=== PATIENT | male | born 1970 | race Caucasian/White ===

== ENCOUNTER 2017-02-20 14:57 | Inpatient (IN) ==
--- NOTE | 2017-02-20 16:18 | Emergency Department Note ---
Disposition Clinical Impression: Diabetic ulcer of toe Qualifiers: Diabetes mellitus type: other specified (including EUNICE) Laterality: right Non- pressure ulcer stage: unspecified non-pressure ulcer stage Qualified Code(s): E13.621 - Other specified diabetes mellitus with foot ulcer; L97.519 - Non- pressure chronic ulcer of other part of right foot with unspecified severity; L97.519 - Non-pressure chronic ulcer of other part of right foot with unspecified severity; L97.519 - Non-pressure chronic ulcer of other part of right foot with unspecified severity; L97.519 - Non-pressure chronic ulcer of other part of right foot with unspecified severity Osteomyelitis Qualifiers: Osteomyelitis type: unspecified type Osteomyelitis location: foot Laterality: right Qualified Code(s): M86.9 - Osteomyelitis, unspecified Disposition: Admitted As Inpatient Condition: Good Time of Disposition: 17:42 Wound/Laceration HPI - General Chief Complaint: ED Wound/Laceration Stated Complaint: Diabetic ulcer on toe Time Seen by Provider: 02/20/17 15:57 Source: patient, family Limitations: language barrier Nursing Notes Reviewed: Yes Vital Signs Reviewed: Yes - History of Present Illness HPI Narrative: Patient presents to the ED for the nonhealing right great toe diabetic ulcer. Sent over by his abatement worker, Dr. Harden. He has been on a full course of Levaquin, just finished clindamycin and was placed on Levaquin again yesterday when he saw him in office. Sent over for admission and IV antibiotics with concern over osteomyelitis. No fever. Nausea but no vomiting. No chest pain or shortness of breath. No rash. - Related Data Home Medications Medication Instructions Recorded Confirmed Insulin DETEMIR [Levemir] 65 unit SQ HS 01/21/15 02/20/17 Pregabalin [Lyrica] 200 mg PO BID 01/21/15 02/20/17 Atorvastatin Calcium [Lipitor] 20 mg PO DAILY 12/27/16 02/20/17 Liraglutide [Victoza 3-Scott] 1.8 mg SQ QAM 12/27/16 02/20/17 Lisinopril [Zestril] 10 mg PO DAILY 12/27/16 02/20/17 SitaGLIPtin [Januvia] 100 mg PO DAILY 02/20/17 02/20/17 Allergies Allergy/AdvReac Type Severity Reaction Status Date / Time duloxetine [From Cymbalta] Allergy Blister Verified 01/21/15 22:58 gabapentin Allergy Blister Verified 02/20/17 15:05 sulfamethoxazole Allergy Blister Verified 02/20/17 15:05 [From Bactrim] trimethoprim [From Bactrim] Allergy Blister Verified 02/20/17 15:05 All systems ED: reviewed and negative except as stated. Constitutional: Denies: fever Respiratory: Denies: dyspnea Gastrointestinal: Reports: nausea Musculoskeletal: Denies: back pain Integumentary: Reports: as per HPI Past Medical History - Past Medical History Attestation: Yes The following information was validated with the patient. Source: patient Medical history: Reports: diabetes, hyperlipidemia Surgical history: Reports: no surgical history, other Psychiatric history: Reports: no psych history - Social History Smoking Status: Current every day smoker Smokeless Tobacco Status: No Alcohol use: Reports: none Drug use: Reports: none Physical Exam - General Limitations: language barrier General appearance: alert, in no apparent distress - Head Head exam: atraumatic, normocephalic, normal inspection - Eye Eye exam: Present: normal appearance, PERRL, EOMI - ENT ENT exam: normal exam, normal oropharynx, mucous membranes moist - Neck Neck exam: Present: normal inspection, full ROM, trachea midline - Chest Chest inspection: Present: normal inspection, symmetric chest wall rise - Respiratory Respiratory exam: Present: normal lung sounds bilaterally - Cardiovascular Cardiovascular exam: Present: regular rate, normal rhythm, normal heart sounds - Abdominal Exam Abdominal exam: Present: soft, Non-Tender. Absent: tenderness, distention, guarding, rebound, rigidity - Expanded Lower Extremity Exam Foot/toe exam: Present: other (Patient has a right great toe. Nonhealing ulcer , erythematous and swollen, family reports improving. Does seem to extend deep and concerning for potential osteo) - Neurological Exam Neurological exam: Present: alert, oriented X3 - Psychiatric Psychiatric exam: Present: normal affect, normal mood Course Course Narrative: Patient evaluated. Has a nonhealing ulcer on his great toe. Is followed by Dr. Harden with podiatry. States that he was supposed to come to the ER to get a PICC line placed and IV antibiotics. Been on multiple rounds. States is not getting better. We will touch base with Dr. Harden for further disposition. - Reevaluation(s) Reevaluation #1: Patient has osteomyelitis. We will place him on Vanc and Zosyn. Admitted the hospitalist. - Consultations Consultation #1: Spoke with the on-call abatement worker, who contacted Dr. Harden. States that they did want the patient admitted. Request that we get blood cultures. X-ray of the foot. CBC, BMP and start on vancomycin and Zosyn. Patient does not appear acutely ill and we will get this going. He admitted the medicine service. Vital Signs Temperature 97.8 F 02/20/17 15:01 Pulse Rate 119 02/20/17 15:01 Respiratory Rate 16 02/20/17 15:01 Blood Pressure 139/91 02/20/17 15:01 O2 Sat by Pulse Oximetry 99 02/20/17 15:01 Temperature 97.8 F 02/20/17 15:01 Pulse Rate 119 02/20/17 15:01 Respiratory Rate 16 02/20/17 15:01 Blood Pressure 139/91 02/20/17 15:01 O2 Sat by Pulse Oximetry 99 02/20/17 15:01 Oxygen Delivery Oxygen Delivery Room Air Wound/Laceration - Lab Data Result diagrams: 02/20/17 16:39 02/20/17 16:39 Lab Results 02/20/17 02/20/17 Range/Units 16:39 16:39 WBC 10.1 (4.3-11.1) K/mcL RBC 5.01 (4.19-5.50) M/mcL Hgb 14.5 (12.9-16.9) g/dL Hct 42.9 (37.5-50.1) % MCV 85.6 (83.0-100.0) fL MCH 28.9 (28.0-33.3) pg MCHC 33.8 (31.6-35.5) g/dL RDW 12.4 (11.5-14.5) % Plt Count 282 (140-400) K/mcL MPV 11.0 (9.4-12.4) fL Immature Gran % 0.4 (0-4) % Seg Neutrophils % 72.3 % Lymphocytes % 18.1 % Monocytes % 7.3 % Eosinophils % 1.4 % Basophils % 0.5 % Neutrophils # 7.3 (1.6-8.9) K/mcL Lymphocytes # 1.8 (0.6-4.6) K/mcL Monocytes # 0.7 (0.0-1.3) K/mcL Eosinophils # 0.1 (0.0-0.6) K/mcL Basophils # 0.1 (0.0-0.2) K/mcL Immature Plt Fraction 4.9 (1.1-6.1) % Sodium 134 L (136-145) mEq/L Potassium 4.8 H (3.5-4.5) mEq/L Chloride 98 (98-109) mEq/L Carbon Dioxide 27 (19-29) mEq/L BUN 11 (8-26) mg/dL Creatinine 0.73 (0.72-1.25) mg/dL Est GFR ( Amer) > 60 (> 60) Est GFR (Non-Af Amer) > 60 (> 60) BUN/Creatinine Ratio 15 (6-26) Glucose 261 H (70-99) mg/dL Calculated Osmolality 286 (280-300) Calcium 10.0 (8.6-10.8) mg/dL
[2017-02-20 16:51] LABS: Basophils # 0.1 K/mcL (0.0-0.2); Basophils % 0.5 %; Eosinophils # 0.1 K/mcL (0.0-0.6); Eosinophils % 1.4 %; Hematocrit 42.9 % (37.5-50.1); Hemoglobin 14.5 g/dL (12.9-16.9); Immature Granulocytes % 0.4 % (0-4); Immature Platelets 4.9 % (1.1-6.1); Lymphocytes # 1.8 K/mcL (0.6-4.6); Lymphocytes % 18.1 %; Mean Corpuscular HGB Conc 33.8 g/dL (31.6-35.5); Mean Corpuscular Hemoglobin 28.9 pg (28.0-33.3); Mean Corpuscular Volume 85.6 fL (83.0-100.0); Monocytes # 0.7 K/mcL (0.0-1.3); Monocytes % 7.3 %; Neutrophils # 7.3 K/mcL (1.6-8.9); Platelet Count 282 K/mcL (140-400); Red Blood Count 5.01 M/mcL (4.19-5.50); Red Cell Distribution Width 12.4 % (11.5-14.5); Segmented Neutrophils % 72.3 %
[2017-02-20 17:04] LABS: BUN/Creatinine Ratio 15 (6-26); Blood Urea Nitrogen 11 mg/dL (8-26); Carbon Dioxide 27 mEq/L (19-29); Chloride 98 mEq/L (98-109); Glucose 261 mg/dL (70-99); Osmolality,Calculated 286 (280-300); Potassium 4.8 mEq/L (3.5-4.5); Sodium 134 mEq/L (136-145); eGFR For African Americans > 60 (> 60); eGFR For Non-African Americans > 60 (> 60)
[2017-02-20] MEDS ORDERED: Piperacillin/Tazobactam 4.5 GM in D5% in Water (Mini-Bag+) 100 ML IVPB ONE (17:25)
[2017-02-20] MEDS ORDERED: Vancomycin 1,250 MG in D5% in Water 250 ML IVPB ONE (17:25)
--- NOTE | 2017-02-20 17:36 | Emergency Department Note ---
START Narrative - START START: I examined this patient and my medical decision-making was reviewed with the Resident Physician. I agree with the documented findings, disposition and treatment plan as described except to the extent set forth below. 46-year-old male presents with right great toe infection. Patient has osteomyelitis. Patient will be admitted to the hospitalist service and consult with podiatry. 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 We will start him on IV antibiotics.
[2017-02-20] MEDS ORDERED: 0.9 % Sodium Chloride 1,000 ML IVC ONE (19:28)
--- NOTE | 2017-02-20 20:23 | Event Note ---
Date of Encounter: 02/20/17 Time of Encounter: 20:21 Patient seen and examined with nurse practitioner. Diabetic patient with chronic right to nonhealing diabetic ulcer. Culture grew group b strept, Citrobacter and Morganella. According to sensitivities, he completed a 10 day course of clindamycin and levofloxacin. Presents today's with symptoms and signs of systemic infection. 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 Start on vancomycin and Zosyn, hydration, podiatry consultation. He mentioned that his diabetes is uncontrolled lust hemoglobin A-1 C was very high according to him, will repeat
[2017-02-20] MEDS ORDERED: Acetaminophen 325 MG TABLET PO PRN (20:30)
[2017-02-20] MEDS ORDERED: Ondansetron 4 MG/2 ML VIAL IVP PRN (20:30)
[2017-02-20] MEDS ORDERED: Naloxone 0.4 MG/ML INJ IVP PRN (20:30)
[2017-02-20] MEDS ORDERED: *HR* HYDROcodone/Acet 5/325 mg TABLET PO PRN (20:30)
[2017-02-20] MEDS ORDERED: *HR* Morphine 2 MG/ML SYRINGE IVP PRN (20:30)
[2017-02-20] MEDS ORDERED: D5% in Water 1,000 ML IVC PRN (20:32)
[2017-02-20] MEDS ORDERED: Dextrose Gel 15 GM PO PRN ×2 (20:32)
[2017-02-20] MEDS ORDERED: *HR* Dextrose 50 % in Water (Syg) 50 ML SYRINGE IVP PRN (20:32)
[2017-02-20 20:56] LABS: Hemoglobin A1C 9.5 %
[2017-02-20] MEDS ORDERED: Insulin LISPRO 300 UNITS/3 ML VIAL SQ SCH (21:00)
[2017-02-20] MEDS ORDERED: INSULIN DETEMIR 65 UNIT SQ SCH (21:00)
[2017-02-20] MEDS: Pregabalin 50 MG CAPSULE PO SCH (22:49)
--- NOTE | 2017-02-20 23:25 | Internal Med History&Physical ---
Date of Encounter: 02/20/17 Time of Encounter: 21:30 Assessment and Plan (1) Osteomyelitis Current visit: Yes Status: Acute 1 patient has been treated for diabetic foot ulcer for the past 3 months. Previous blood cultures grew group B strep Citrobacter and Morganella-is been treated as outpatient with clindamycin Levaquin with no improvement. X-ray of right foot today did reveal increased erosive changes of the first DIP compatible with progressive prostate mellitus. Blood cultures obtained initiated on vancomycin and Zosyn. 2 Podiatry consulted - per ER physician Qualifiers: Osteomyelitis type: unspecified type Osteomyelitis location: foot Laterality: right Qualified Code(s): M86.9 - Osteomyelitis, unspecified (2) Diabetic ulcer of toe Current visit: Yes Status: Chronic 1 consulted podiatry- awaiting recommendations 2 continue with Vancomycin and zosyn Qualifiers: Diabetes mellitus type: other specified (including EUNICE) Laterality: right Non-pressure ulcer stage: unspecified non-pressure ulcer stage Qualified Code(s): E13.621 - Other specified diabetes mellitus with foot ulcer; L97.519 - Non-pressure chronic ulcer of other part of right foot with unspecified severity ; L97.519 - Non-pressure chronic ulcer of other part of right foot with unspecified severity; L97.519 - Non-pressure chronic ulcer of other part of right foot with unspecified severity; L97.519 - Non-pressure chronic ulcer of other part of right foot with unspecified severity (3) Diabetes mellitus Current visit: Yes Status: Acute 1 Accu-Cheks before meals and at bedtime with sliding scale insulin. We will give half of 35 units Levemir tonight due to patient's nothing by mouth status 2 diabetic diet 3 check A1c in AM Qualifiers: Diabetes mellitus type: type 2 Diabetes mellitus complication status: with skin complications Diabetes mellitus complication detail: with foot ulcer Diabetes mellitus planned giving officer insulin use: with chcf use Qualified Code(s) : E11.621 - Type 2 diabetes mellitus with foot ulcer; L97.509 - Non-pressure chronic ulcer of other part of unspecified foot with unspecified severity; L97.509 - Non-pressure chronic ulcer of other part of unspecified foot with unspecified severity; L97.509 - Non-pressure chronic ulcer of other part of unspecified foot with unspecified severity; L97.509 - Non-pressure chronic ulcer of other part of unspecified foot with unspecified severity; Z79.4 - halfway (current) use of insulin; Z79.4 - corporate training manager (current) use of insulin; Z79.4 - halfway (current) use of insulin; Z79.4 - corporate training manager (current) use of insulin (4) DVT prophylaxis Current visit: Yes Status: Acute lovenox (5) Hypertension Current visit: No Status: Chronic continue with lisinopril Qualifiers: Hypertension type: essential hypertension Qualified Code(s): I10 - Essential (primary) hypertension (6) Tobacco abuse Current visit: No Status: Acute encourage to stop smoking - nicotine patch Internal Medicine - H&P: HPI Chief complaint: infection to L great toe Admitted From: Emergency Dept Plans for Post Hospital Care: Home History of present illness: Mr. Menon is a 46 year old male smoker with history of diabetes neuropathy and hypertension. 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 Patient was advised to go to the ER for evaluation and admission. X-ray of right foot did reveal increased erosive changes of the first DIP joint most compatible with progressive osteomyelitis. Blood cultures were obtained Dr. Harden was notified and consu According to the patient for the past 3 months he has had a chronic nonhealing diabetic ulcer to his right foot. He has been followed by podiatry-Dr. Harden. Culture grew group B strep Citrobacter and Morganella. He has been receiving outpatient antibiotics, clindamycin and Levaquin. He presented to his lted The patient has been admitted for further workup and evaluation. Presently the patient denies any pain or discomfort. He is hemodynamically stable at this time. Past Med Surg Social Fam HX - Past Medical History Medical history: diabetes, hyperlipidemia Psychiatric history: no psych history - Past Surgical History Surgical History: other - Social History Smoking Status: Current every day smoker Smokeless Tobacco Status: No Alcohol use: none Drug use: none - Family History Father Living Status: Still Living Hx Family Neuromuscular Disorders: Yes (cva) Mother Living Status: Still Living Hx Family Endocrine Disorder: Yes (DM) Internal Medicine - H&P: Meds Insulin DETEMIR [Levemir] 65 unit SQ HS 01/21/15 [History] Pregabalin [Lyrica] 200 mg PO BID 01/21/15 [History] Atorvastatin Calcium [Lipitor] 20 mg PO DAILY 12/27/16 [History] Liraglutide [Victoza 3-Scott] 1.8 mg SQ QAM 12/27/16 [History] Lisinopril [Zestril] 10 mg PO DAILY 12/27/16 [History] SitaGLIPtin [Januvia] 100 mg PO DAILY 02/20/17 [History] 3 Allergy/AdvReac Type Severity Reaction Status Date / Time duloxetine [From Cymbalta] Allergy Blister Verified 01/21/15 22:58 gabapentin Allergy Blister Verified 02/20/17 15:05 sulfamethoxazole Allergy Blister Verified 02/20/17 15:05 [From Bactrim] trimethoprim [From Bactrim] Allergy Blister Verified 02/20/17 15:05 All Systems PM: A 10-system review of systems was performed and is negative for pertinent findings except as documented above in the HPI. - Constitutional Constitutional: no chills, no fever(s), no night sweats - EENT Eyes: no change in vision, no discharge, no pain, no photophobia Nose, mouth and throat: no dysphagia, no nasal discharge, no neck pain, no sore throat - Cardiovascular Cardiovascular ROS IM: no chest pain, no diaphoresis, no dyspnea, no lightheadedness, no palpitations, no syncope - Respiratory Respiratory: no cough, no dyspnea, no wheezing, no excessive phlegm production - Gastrointestinal Gastrointestinal: no abdominal pain, no diarrhea, no hematemesis, no hematochezia, no melena, no nausea, no vomiting - Musculoskeletal Musculoskeletal ROS IM: no numbness, no tingling - Integumentary Integumentary IM: non-healing lesions - Neurological Neurological ROS: no confusion, no convulsions, no focal weakness, no numbness, no tingling, no tremor(s) - Hematologic/Lymphatic Hematologic/Lymphatic: no easy bruising - Constitutional Vitals: Temp Pulse Resp BP Pulse Ox 98.9 F 117 18 111/70 97 02/20/17 19:25 02/20/17 19:25 02/20/17 19:25 02/20/17 19:25 02/20/17 19:25 General appearance: Present: A&O X 3, answers questions appropriately - Head Head exam: Present: atraumatic, normocephalic - Eye Eye exam: Present: PERRL, conjuntiva pink, sclera anicteric Pupils: Present: PERRL - Neck Neck exam general surgery: Present: supple, trachea midline. Absent: lymphadenopathy - Respiratory Respiratory exam: Present: CTAB. Absent: accessory muscle use, rales, rhonchi, wheezes - Cardiovascular Cardiovascular exam: Present: RRR, +S1, +S2. Absent: diastolic murmur, gallop, rubs, systolic murmur - GI/Abdominal GI/Abdominal exam: Present: normal bowel sounds, soft, no peritoneal signs. Absent: distended, tenderness - Extremities Exam Extremities exam: Present: warm, radial pulses palpable and symmetrical. Absent : calf tenderness, cyanotic, pedal edema - Expanded Lower Extremities Exam 1 - Nonhealing ulcer to great toe Internal Med - H&P Results - Labs CBC & Chem 7: 02/20/17 16:39 02/20/17 16:39 - Diagnostic Studies Other Images Additional comments: Foot X-Ray 02/20/17 16:27 IMPRESSION: Increased erosive changes/osteopenia of the 1st DIP joint, most compatible with progressive osteomyelitis. D/ / 02/20/2017 17:17:56 Bharat Augustine MD / simone Interpreting Provider: Bharat Augustine MD
[2017-02-21] MEDS ORDERED: Dextrose Gel 15 GM PO PRN ×2 (00:44)
[2017-02-21] MEDS ORDERED: *HR* Dextrose 50 % in Water (Syg) 50 ML SYRINGE IVP PRN (00:44)
[2017-02-21] MEDS ORDERED: D5% in Water 1,000 ML IVC PRN (00:44)
[2017-02-21] MEDS: Piperacillin/Tazobactam 3.375 GM in D5% in Water 50 ML IVPB SCH ×3 (00:52→16:17)
[2017-02-21] MEDS: Insulin LISPRO 300 UNITS/3 ML VIAL SQ SCH ×4 (00:52→17:14)
[2017-02-21] MEDS: Insulin DETEMIR 100 UNIT/ML X5UNITS SQ SCH ×2 (00:53→21:56)
[2017-02-21] MEDS: *HR* Enoxaparin 40 MG/0.4 ML SYRINGE SQ SCH (05:46)
[2017-02-21] MEDS ORDERED: Insulin LISPRO 300 UNITS/3 ML VIAL SQ SCH ×2 (06:00→07:30)
[2017-02-21 06:50] LABS: Hematocrit 39.5 % (37.5-50.1); Hemoglobin 13.2 g/dL (12.9-16.9); Mean Corpuscular HGB Conc 33.4 g/dL (31.6-35.5); Mean Corpuscular Hemoglobin 28.8 pg (28.0-33.3); Mean Corpuscular Volume 86.2 fL (83.0-100.0); Platelet Count 267 K/mcL (140-400); Red Blood Count 4.58 M/mcL (4.19-5.50); Red Cell Distribution Width 12.2 % (11.5-14.5)
[2017-02-21 07:03] LABS: BUN/Creatinine Ratio 17 (6-26); Blood Urea Nitrogen 11 mg/dL (8-26); Calcium 9.3 mg/dL (8.6-10.8); Carbon Dioxide 28 mEq/L (19-29); Chloride 103 mEq/L (98-109); Glucose 93 mg/dL (70-99); Magnesium 1.6 mg/dL (1.6-2.6); Osmolality,Calculated 287 (280-300); Potassium 4.5 mEq/L (3.5-4.5); Sodium 139 mEq/L (136-145); eGFR For African Americans > 60 (> 60); eGFR For Non-African Americans > 60 (> 60)
[2017-02-21 07:51] LABS: Eosinophils # 0.2 K/mcL (0.0-0.6); Monocytes # 0.5 K/mcL (0.0-1.3); Neutrophils # 8.6 K/mcL (1.6-8.9); Reactive Lymphocytes Present (Not Present)
[2017-02-21 07:54] LABS: Platelet Estimate Normal (Normal)
[2017-02-21] MEDS ORDERED: Vancomycin 1,250 MG in D5% in Water 250 ML IVPB SCH ×2 (08:00→23:45)
[2017-02-21] MEDS: Nicotine 14 MG PATCH.TD24 TD SCH (09:01)
[2017-02-21] MEDS: Pregabalin 50 MG CAPSULE PO SCH ×2 (09:01→21:55)
[2017-02-21] MEDS: Vancomycin 1,250 MG in D5% in Water 250 ML IVPB SCH (12:22)
--- NOTE | 2017-02-21 13:13 | Podiatry Consult Note ---
Date of Encounter: 02/21/17 Time of Encounter: 12:00 Assessment and Plan (1) Diabetic ulcer of toe Current visit: Yes Status: Resolved Assessment: Full thickness diabetic ulcer to medial aspect of right great toe with probe to bone. Last cultures positive for Group B strep, citrobacter and morganella Plan: Noted probe to bone on exam xray suggestive of osteomyelitis of 1st DIP joint as noted below Will obtain MRI w/wo contrast to further evaluate extent of osteomyelitis Sed rate and CRP ordered Wound cultures to be obtained at bedside per nursing staff- floor did not have culture tubes available Blood cultures were obtained, started on vanc and zosyn per internal medicine- monitor renal function Continue current antibiotic therapy- consult to ID- will likely need 6 weeks IV antibiotic therapy SW on board and managing home antibiotic therapy After MRI, will determine need for surgical intervention Please apply adaptic, 4x4 and coban to wound after cultures obtained. Foot X-Ray 02/20/17 16:27 IMPRESSION: Increased erosive changes/osteopenia of the 1st DIP joint, most compatible with progressive osteomyelitis. D/ / 02/20/2017 17:17:56 Bharat Augustine MD / simone Interpreting Provider: Bharat Augustine MD Qualifiers: Diabetes mellitus type: other specified (including EUNICE) Laterality: right Non-pressure ulcer stage: unspecified non-pressure ulcer stage Qualified Code(s): E13.621 - Other specified diabetes mellitus with foot ulcer; L97.519 - Non-pressure chronic ulcer of other part of right foot with unspecified severity ; L97.519 - Non-pressure chronic ulcer of other part of right foot with unspecified severity; L97.519 - Non-pressure chronic ulcer of other part of right foot with unspecified severity; L97.519 - Non-pressure chronic ulcer of other part of right foot with unspecified severity (2) Tobacco abuse Current visit: No Status: Acute Medical following and appreciated Please educate on smoking cessation (3) Osteomyelitis Current visit: Yes Status: Acute see above Qualifiers: Osteomyelitis type: subacute Osteomyelitis location: foot Laterality: right Qualified Code(s): M86.271 - Subacute osteomyelitis, right ankle and foot (4) Diabetes mellitus Current visit: Yes Status: Acute Medical on board and managing- appreciated Please obtain tight glucose control- hyperglycemia noted Educated extensively at bedside about need to obtain tight glucose control to promote healing and prevent further complication Patient states he thinks last a1c was in 9s however states it was 14. States he was recently admitted with DKA. Qualifiers: Diabetes mellitus type: type 2 Diabetes mellitus complication status: with skin complications Diabetes mellitus complication detail: with foot ulcer Diabetes mellitus care home insulin use: with long term care phlebotomist use Qualified Code(s) : E11.621 - Type 2 diabetes mellitus with foot ulcer; L97.509 - Non-pressure chronic ulcer of other part of unspecified foot with unspecified severity; L97.509 - Non-pressure chronic ulcer of other part of unspecified foot with unspecified severity; L97.509 - Non-pressure chronic ulcer of other part of unspecified foot with unspecified severity; L97.509 - Non-pressure chronic ulcer of other part of unspecified foot with unspecified severity; Z79.4 - superintendent terminal (current) use of insulin; Z79.4 - custodial (current) use of insulin; Z79.4 - custodial (current) use of insulin; Z79.4 - superintendent terminal (current) use of insulin History of Present Illness HPI: Mr. Menon is a 46 year old male with a past medical history of uncontrolled diabetes with recent admission for DKA, hypertension and tobacco use. Patient has been followed per in clinic for an ulceration of the medial aspect of the right great toe. Per patient, wound started about 3 months ago. States he got out of the shower and noticed a piece of skin hanging from his toe. States that the ulcer appeared within the days following and has never healed. Cultures were obtained on 02/08, positive for morganella, group B strep and, citrobacter and patient was treated with clindamycin and levaquin. Patient returned to office 2 days ago and ulceration was noted to be worsening, he was instructed to go to hospital for IV antibiotic therapy. Patient denies any fevers, chills, n/v or flu like symptoms. at bedside, states she has been dressing wound daily with 4x4 and coban. Patient states glucose has not been well controlled. He is a current everyday smoker. Past Med Surg Social Fam HX - Past Medical History Medical history: diabetes, hyperlipidemia Psychiatric history: no psych history - Past Surgical History Surgical History: other - Social History Smoking Status: Current every day smoker Smokeless Tobacco Status: No Alcohol use: none Drug use: none - Family History Father Living Status: Still Living Hx Family Neuromuscular Disorders: Yes (cva) Mother Living Status: Still Living Hx Family Endocrine Disorder: Yes (DM) Medications and Allergies Insulin DETEMIR [Levemir] 65 unit SQ HS 01/21/15 [History] Pregabalin [Lyrica] 200 mg PO BID 01/21/15 [History] Atorvastatin Calcium [Lipitor] 20 mg PO DAILY 12/27/16 [History] Liraglutide [Victoza 3-Scott] 1.8 mg SQ QAM 12/27/16 [History] Lisinopril [Zestril] 10 mg PO DAILY 12/27/16 [History] SitaGLIPtin [Januvia] 100 mg PO DAILY 02/20/17 [History] Crutch 1 each MC DAILY #1 each 02/25/17 [Rx] Insulin LISPRO [HumaLOG] 5 units SQ TIDWM #2 vial 02/25/17 [Rx] Nicotine Patch [Nicoderm] 14 mg TD DAILY #30 patch.td24 02/25/17 [Rx] Vancomycin [Vancocin] 1,500 mg IV Q12H 42 Days vial 02/25/17 [Rx] 3 Allergy/AdvReac Type Severity Reaction Status Date / Time duloxetine [From Cymbalta] Allergy Blister Verified 01/21/15 22:58 gabapentin Allergy Blister Verified 02/20/17 15:05 sulfamethoxazole Allergy Blister Verified 02/20/17 15:05 [From Bactrim] trimethoprim [From Bactrim] Allergy Blister Verified 02/20/17 15:05 All Systems Reviewed: A 10-system review of systems was performed and is negative for pertinent findings except as documented above in the HPI. Physical Exam - Constitutional Vitals: Temp Pulse Resp BP Pulse Ox 98.8 F 114 16 114/68 99 02/21/17 10:26 02/21/17 10:26 02/21/17 10:26 02/21/17 10:26 02/21/17 10:26 Exam: Awake, alert and oriented Minimal sensation to light or moderate touch - profound loss of protective sensation Movement intact- no limited ROM- muscle strength 5/5 and equal bilaterally Pulses palpable DP/PT Cap refill <3 seconds BLE warm toes to tibia No calf pain with manual compression ULCER: There is a large diabetic ulcer to medial aspect of right great toe. There is associated edema, erythema and warmth to toe. Ulcer measures [id number] depth with probe to bone. There is no noted drainage at this time however reports it was draining a green color. Wound bleeds easily with manipulation. There is minimal healthy granulation tissue. 90% fibrous wound bed noted. Wound surrounded by thick, hyperkeratotic skin. Mild odor. No ascending cellulitis. No fluctuance noted. Results - Labs Result Diagrams: 02/25/17 05:19 02/25/17 05:19 Labs: Abnormal lab results WBC 11.3 K/mcL (4.3-11.1) H 02/21/17 06:09 Reactive Lymphocytes Present (Not Present) A 02/21/17 06:09 Creatinine 0.66 mg/dL (0.72-1.25) L 02/21/17 06:09 POC Glucose 97 (58-89) H 02/21/17 06:25 Hemoglobin A1c 9.5 % (-5.6) H 02/20/17 16:39 H & H 02/21/17 Range/Units 06:09 Hgb 13.2 (12.9-16.9) g/dL Hct 39.5 (37.5-50.1) % All other labs normal. Consult Discharge Plan - Plan Instructions: Vancomycin (Injection), Osteomyelitis (DC) Referrals: Pamela Bruce CNP [Advanced Practice Nurse] - 03/11/17 9:00 am Chidi Woody DO [Primary Care Provider] - Prescriptions: Crutch 1 each MC DAILY #1 each Insulin LISPRO [HumaLOG] 5 units SQ TIDWM #2 vial Nicotine Patch [Nicoderm] 14 mg TD DAILY #30 patch.td24 Vancomycin [Vancocin] 1,500 mg IV Q12H 42 Days vial
[2017-02-21 13:21] LABS: C-Reactive Protein 8 mg/L (Less than 5)
[2017-02-21] MEDS ORDERED: Insulin DETEMIR 100 UNIT/ML X5UNITS SQ SCH (21:00)
[2017-02-22] MEDS: Insulin LISPRO 300 UNITS/3 ML VIAL SQ SCH ×5 (00:15→21:21)
[2017-02-22] MEDS: Piperacillin/Tazobactam 3.375 GM in D5% in Water 50 ML IVPB SCH ×4 (00:16→23:19)
[2017-02-22] MEDS: Vancomycin 1,250 MG in D5% in Water 250 ML IVPB SCH (00:16)
[2017-02-22 05:35] LABS: Basophils # 0.1 K/mcL (0.0-0.2); Basophils % 0.6 %; Eosinophils # 0.3 K/mcL (0.0-0.6); Eosinophils % 3.3 %; Hematocrit 33.9 % (37.5-50.1); Hemoglobin 11.3 g/dL (12.9-16.9); Immature Granulocytes % 0.4 % (0-4); Lymphocytes # 2.2 K/mcL (0.6-4.6); Lymphocytes % 23.5 %; Mean Corpuscular HGB Conc 33.3 g/dL (31.6-35.5); Mean Corpuscular Hemoglobin 28.7 pg (28.0-33.3); Monocytes % 11.1 %; Neutrophils # 5.8 K/mcL (1.6-8.9); Platelet Count 221 K/mcL (140-400); Red Blood Count 3.94 M/mcL (4.19-5.50); Red Cell Distribution Width 12.1 % (11.5-14.5); Segmented Neutrophils % 61.1 %
[2017-02-22 05:46] LABS: BUN/Creatinine Ratio 15 (6-26); Blood Urea Nitrogen 11 mg/dL (8-26); Calcium 8.9 mg/dL (8.6-10.8); Carbon Dioxide 28 mEq/L (19-29); Chloride 101 mEq/L (98-109); Glucose 151 mg/dL (70-99); Osmolality,Calculated 282 (280-300); Sodium 135 mEq/L (136-145); eGFR For African Americans > 60 (> 60); eGFR For Non-African Americans > 60 (> 60)
[2017-02-22] MEDS: *HR* Enoxaparin 40 MG/0.4 ML SYRINGE SQ SCH (05:58)
--- NOTE | 2017-02-22 09:10 | Internal Med Progress Note ---
Date of Encounter: 02/21/17 Time of Encounter: 15:56 - Assessment and plan (1) Osteomyelitis Current Visit: Yes Status: Acute Assessment and plan: Patient would like to leave, he does agree to MRI as was recommended by Podiatry. Had d/w patient severity of osteomyelitis. He is more willing to stay at this point. Qualifiers: Osteomyelitis type: unspecified type Osteomyelitis location: foot Laterality: right Qualified Code(s): M86.9 - Osteomyelitis, unspecified (2) Diabetic ulcer of toe Current Visit: Yes Status: Chronic Qualifiers: Diabetes mellitus type: other specified (including EUNICE) Laterality: right Non-pressure ulcer stage: unspecified non-pressure ulcer stage Qualified Code(s): E13.621 - Other specified diabetes mellitus with foot ulcer; L97.519 - Non-pressure chronic ulcer of other part of right foot with unspecified severity ; L97.519 - Non-pressure chronic ulcer of other part of right foot with unspecified severity; L97.519 - Non-pressure chronic ulcer of other part of right foot with unspecified severity; L97.519 - Non-pressure chronic ulcer of other part of right foot with unspecified severity (3) Noncompliance Current Visit: No Status: Acute (4) Tobacco abuse Current Visit: No Status: Acute (5) Hypertension Current Visit: No Status: Chronic Qualifiers: Hypertension type: essential hypertension Qualified Code(s): I10 - Essential (primary) hypertension - Subjective Interval history: present in room. No acute events. Patient debating to leaving tomorrow because he has no one to take care of his dog. Pain controlled. Denies fevers /chills, n/v. - Constitutional Vitals: Temp Pulse Resp BP Pulse Ox 98.2 F 87 16 107/76 98 02/22/17 06:40 02/22/17 06:40 02/22/17 06:40 02/22/17 06:40 02/22/17 06:40 General appearance: Present: A&O X 3, answers questions appropriately Exam: Gen Nad, AAOx3 CVS: RRR Lungs: CTAB Right foot wrapped with clean dressing. No foul odor, dressing c/d/i. No edema Internal Medicine: Result - Labs CBC & Chem 7: 02/22/17 05:03 02/22/17 05:03 Labs: Short CBC 02/22/17 Range/Units 05:03 WBC 9.4 (4.3-11.1) K/mcL Hgb 11.3 L D (12.9-16.9) g/dL Hct 33.9 L (37.5-50.1) % Plt Count 221 (140-400) K/mcL Neutrophils # 5.8 (1.6-8.9) K/mcL BMP 02/21/17 02/22/17 06:09 05:03 Sodium 139 135 L Potassium 4.5 4.0 Chloride 103 101 Carbon Dioxide 28 28 BUN 11 11 Creatinine 0.66 L 0.72 Glucose 93 151 H Calcium 9.3 8.9 - Impressions Impressions Foot MRI 02/21/17 13:03 IMPRESSION: 1. Osteomyelitis throughout the 1st proximal and distal phalanges. 2. Soft tissue ulceration medial to the head of the 1st proximal phalanx with underlying sinus tract contacting the phalanx. Adjacent subcutaneous edema extending proximally along the dorsum of foot compatible with cellulitis. 3. Small volume of fluid in the 1st intermetatarsal space without significant peripheral enhancement and separate from the other soft tissue processes likely representing intermetatarsal bursitis. 4. Diffuse intramuscular edema compatible with diabetic myopathy versus denervation versus myositis. D/ / Evangelista Copeland MD / Evangelista Copeland MD Interpreting Provider: Evangelista Copeland MD Consult Discharge Plan - Plan Referrals: Chidi Woody DO [Primary Care Provider] -
[2017-02-22] MEDS ORDERED: Insulin DETEMIR 100 UNIT/ML X5UNITS SQ ONE (09:15)
[2017-02-22] MEDS: Pregabalin 50 MG CAPSULE PO SCH ×2 (09:45→21:09)
[2017-02-22] MEDS: Nicotine 14 MG PATCH.TD24 TD SCH (09:45)
--- NOTE | 2017-02-22 11:50 | Infectious Disease Consult ---
Date of Encounter: 02/22/17 Time of Encounter: 11:50 Assessment and Plan (1) Sepsis Status: Acute Assessment and plan: The patient had two SIRS criteria. Likely secondary to right foot OM. Improved. Tachycardia has resolved. WBC has normalized. Blood cultures drawn 02/20/17 are NGTD x 2 sets. Qualifiers: Sepsis type: sepsis due to unspecified organism Qualified Code(s): A41.9 - Sepsis, unspecified organism (2) Osteomyelitis Status: Acute Assessment and plan: Location: Right great toe. Causative organism unclear. Previous wound culture from 02/08/17 grew M. morgannii, Citrobacter, and GBS. Likely secondary to diabetic foot ulcer. Failed outpatient oral antibiotics. MRI of the right foot showed OM of the distal and proximal phalanges as well as cellulitis. ESR 85, CRP 8. Podiatry consulted. Per patient, they are planning to amputate the toe. Repeat wound culture obtained yesterday per podiatry --> pending. Await intra-op findings. Continue Vancomycin IV. Pharmacy to dose. Goal trough ~15. Continue Zosyn 3.375 grams IV Q8H. Duration of treatment depends on the clinical picture. Monitor renal function and for drug toxicity and dose-adjust antibiotics. Wound care and activity restrictions per the podiatry team. java web services developer consulted to assist with discharge planning. Qualifiers: Osteomyelitis type: unspecified type Osteomyelitis location: foot Laterality: right Qualified Code(s): M86.9 - Osteomyelitis, unspecified (3) Diabetic ulcer of toe Status: Chronic Assessment and plan: Location: Dorsal aspect right great toe. Etiology unclear. Continue wound care per podiatry's recommendations. Qualifiers: Diabetes mellitus type: other specified (including EUNICE) Laterality: right Non-pressure ulcer stage: unspecified non-pressure ulcer stage Qualified Code(s): E13.621 - Other specified diabetes mellitus with foot ulcer; L97.519 - Non-pressure chronic ulcer of other part of right foot with unspecified severity ; L97.519 - Non-pressure chronic ulcer of other part of right foot with unspecified severity; L97.519 - Non-pressure chronic ulcer of other part of right foot with unspecified severity; L97.519 - Non-pressure chronic ulcer of other part of right foot with unspecified severity (4) Hyperglycemia Status: Acute Assessment and plan: Secondary to uncontrolled DM. Management per the primary team. (5) Tobacco abuse Status: Acute (6) Diabetes mellitus Status: Acute Assessment and plan: Uncontrolled. Hgb A1C 9.5%. Recommend aggressive glucose monitoring and control to promote wound healing and prevent re-infection. Management per the primary team. 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 Qualified Code(s) : E11.621 - Type 2 diabetes mellitus with foot ulcer; L97.509 - Non-pressure chronic ulcer of other part of unspecified foot with unspecified severity; L97.509 - Non-pressure chronic ulcer of other part of unspecified foot with unspecified severity; L97.509 - Non-pressure chronic ulcer of other part of unspecified foot with unspecified severity; L97.509 - Non-pressure chronic ulcer of other part of unspecified foot with unspecified severity; Z79.4 - snf (current) use of insulin; 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 Menon is a 46 year old male has medical history of diabetes and hyperlipidemia. The patient was managed the hospital February 20 for osteomyelitis of the right great toe. We are consulted February 22 for antibiotic recommendations regarding osteomyelitis of the right great toe. Briefly, the patient is a 46-year-old male with a past medical history as stated above. The patient presented to the emergency department on the day of admission under the direction of Dr. Harden for a nonhealing right great toe ulcer. The patient noticed the ulcer back in November and has been following with Dr. Harden. He states he's been treated with a couple rounds of antibiotics and has had continued worsening of the ulcer with associated redness and swelling. Culture obtained October 27 grew out Morganella Morgagni, group B strep, and Citrobacter. Upon arrival to the ER, the patient was tachycardic and afebrile. He had a normal white blood cell count, but yesterday his white blood cell count was elevated. Other laboratory studies were unremarkable. He had a foot x- ray that showed erosive changes of the distal interphalangeal joint #1 consistent with osteomyelitis. He was started on empiric IV antibiotics and admitted to the hospital for further evaluation. Since admission, the patient has remained afebrile and his white blood cell count has normalized. A right foot MRI showed osteomyelitis of the first distal and proximal phalanges as well as cellulitis. Podiatry was consulted and did a bedside debridement noticed that the ulcer probed to bone. A new wound culture was obtained and the Gram stain shows few gram-negative rods and moderate gram- positive cocci. ESR is elevated at 85 with a CRP of 8. Currently, the patient is on IV vancomycin and IV Zosyn. We've been asked to evaluate and make further recommendations. During my exam today, the patient states that he was having some chills and nausea prior to admission, but denies any fevers or rigors. He denies any headache or neck pain. He denies any congestion, earache, or sore throat. He denies any chest pain, shortness of breath, or cough. He denies any vomiting or diarrhea. He denies any abdominal pain and states his appetite was okay. He denies pain at the site of the infection. He does report that was red and swollen with redness extending up to the mid foot. He denies any purulent drainage. The patient lives at home with his . Does have a dog, but denies any recent bites or scratches. He denies recent travel. He does smoke a pack of cigarettes per day, but denies any alcohol or illicit drug use. The patient does not work outside the home. CC: Poncho Ahumada MD Past Med Surg Social Fam HX - Past Medical History Attestation: Yes The following information was validated with the patient. Source: patient, old records reviewed, nursing notes reviewed Medical history: diabetes, hyperlipidemia Psychiatric history: no psych history - Past Surgical History Surgical History: other (left ankle ORIF) - Social History Smoking Status: Current every day smoker Packs per day: 1 Smokeless Tobacco Status: No Alcohol use: none Drug use: none Occupational status: disabled Current living situation: Home - Independent Activity Level: Independent ambulation Recent Out of Country Travel Within the Last 8 Weeks: No Exposure or Possible Exposure to Illness During Travel: No - Family History Father Living Status: Still Living Hx Family Neuromuscular Disorders: Yes (cva) Mother Living Status: Still Living Hx Family Endocrine Disorder: Yes (DM) Infectious Disease-CN:Meds Insulin DETEMIR [Levemir] 65 unit SQ HS 01/21/15 [History] Pregabalin [Lyrica] 200 mg PO BID 01/21/15 [History] Atorvastatin Calcium [Lipitor] 20 mg PO DAILY 12/27/16 [History] Liraglutide [Victoza 3-Scott] 1.8 mg SQ QAM 12/27/16 [History] Lisinopril [Zestril] 10 mg PO DAILY 12/27/16 [History] SitaGLIPtin [Januvia] 100 mg PO DAILY 02/20/17 [History] 3 Allergy/AdvReac Type Severity Reaction Status Date / Time duloxetine [From Cymbalta] Allergy Blister Verified 01/21/15 22:58 gabapentin Allergy Blister Verified 02/20/17 15:05 sulfamethoxazole Allergy Blister Verified 02/20/17 15:05 [From Bactrim] trimethoprim [From Bactrim] Allergy Blister Verified 02/20/17 15:05 All systems: reviewed and no additional remarkable complaints except as stated Exam - Constitutional Vitals: Temp Pulse Resp BP Pulse Ox 98.2 F 87 16 107/76 98 02/22/17 06:40 02/22/17 06:40 02/22/17 06:40 02/22/17 06:40 02/22/17 06:40 General appearance: average body habitus, cooperative, no acute distress - Head Head exam: Present: atraumatic, normal inspection, normocephalic - Eye Eye exam: Present: EOMI, normal appearance, PERRL Pupils: Present: normal accommodation - ENT ENT exam: Present: mucous membranes moist - Neck Neck exam: Present: normal inspection - Respiratory Respiratory exam: Present: CTAB. Absent: rales, respiratory distress, rhonchi, wheezes - Cardiovascular Cardiovascular exam: Present: RRR, +S1, +S2 - GI/Abdominal GI/Abdominal exam: Present: normal bowel sounds, soft. Absent: distended, tenderness - Extremities Exam Extremities exam: Absent: joint swelling, pedal edema, tenderness Additional comments: Right foot dressing C/D/I. - Neurological Exam Neurological exam: Present: alert, oriented X3, no focal deficits - Psychiatric Psychiatric exam: Present: normal affect, normal mood - Skin Skin exam: Present: dry, intact, normal color, warm Infectious Disease CN: Results - Labs CBC & Chem 7: 02/22/17 05:03 02/22/17 05:03 Cultures: Cultures 02/21/17 12:42 Gram Stain - Preliminary Right Great Toe Consult Discharge Plan - Plan Referrals: Chidi Woody DO [Primary Care Provider] -
[2017-02-22] MEDS ORDERED: D5% in 0.9% NACL 1,000 ML IVC SCH ×2 (12:30→19:12)
[2017-02-22] MEDS ORDERED: Vancomycin 1,500 MG in D5% in Water 250 ML IVPB SCH (13:00)
--- NOTE | 2017-02-22 16:07 | Podiatry Consult Note ---
Date of Encounter: 02/22/17 Time of Encounter: 09:15 Assessment and Plan (1) Osteomyelitis Current visit: Yes Status: Acute I had a thorough review with the patient regarding his condition, my findings, and his treatment options. We discussed his x-rays and his MRI and the ulceration which has been present for 3 months. Discussed the infection which has been found to be present in the bone and the ulceration which probes to bone. Discussed amputation of the right hallux versus conservative treatment with IV antibiotics patient decided that he would like to proceed with the amputation of the right hallux after taking time to think it over. Nature of the procedure amputation of the right hallux, risks versus benefits potential complications and consequences of the procedure explained to the patient lengthy understood that this could be a stage procedure and he could need further surgery in the future. No guarantees made that he would not require further amputation and he understood that he could lose his leg. All questions were answered and informed consent was signed. Patient NPO, cone cleaner the OR. History of Present Illness HPI: Mr. Menon is a 46 year old diabetic male who has had a right great toe ulceration for 3 months. He was being treated by Dr. Harden as an outpatient for the wound and on oral antibiotics. Patient was referred to admission from the hospital previously but refused to go because he had to feed his dog. He then subsequently showed up in the ER and was admitted. He was found to have an ulceration that probed to bone. He denies any fever, chills, nausea, and vomiting. A1c was previously as high as 14% and most recently reported at 9%. A month ago he was admitted with DKA. Past Med Surg Social Fam HX - Past Medical History Medical history: diabetes, hyperlipidemia Psychiatric history: no psych history - Past Surgical History Surgical History: other (left ankle ORIF) - Social History Smoking Status: Current every day smoker Packs per day: 1 Smokeless Tobacco Status: No Alcohol use: none Drug use: none - Family History Father Living Status: Still Living Hx Family Neuromuscular Disorders: Yes (cva) Mother Living Status: Still Living Hx Family Endocrine Disorder: Yes (DM) Medications and Allergies Insulin DETEMIR [Levemir] 65 unit SQ HS 01/21/15 [History] Pregabalin [Lyrica] 200 mg PO BID 01/21/15 [History] Atorvastatin Calcium [Lipitor] 20 mg PO DAILY 12/27/16 [History] Liraglutide [Victoza 3-Scott] 1.8 mg SQ QAM 12/27/16 [History] Lisinopril [Zestril] 10 mg PO DAILY 12/27/16 [History] SitaGLIPtin [Januvia] 100 mg PO DAILY 02/20/17 [History] 3 Allergy/AdvReac Type Severity Reaction Status Date / Time duloxetine [From Cymbalta] Allergy Blister Verified 01/21/15 22:58 gabapentin Allergy Blister Verified 02/20/17 15:05 sulfamethoxazole Allergy Blister Verified 02/20/17 15:05 [From Bactrim] trimethoprim [From Bactrim] Allergy Blister Verified 02/20/17 15:05 All Systems Reviewed: A 10-system review of systems was performed and is negative for pertinent findings except as documented above in the HPI. - Constitutional Constitutional: as per HPI - Cardiovascular Cardiovascular: no chest pain, no dyspnea - Respiratory Respiratory: no cough, no dyspnea - Musculoskeletal Musculoskeletal: as per HPI, joint swelling Physical Exam - Constitutional Vitals: Temp Pulse Resp BP Pulse Ox 98 F 84 16 108/73 99 02/22/17 09:41 02/22/17 09:41 02/22/17 09:41 02/22/17 09:41 02/22/17 09:41 General appearance: average body habitus, cooperative, no acute distress Exam: well developed and nourished male in no acute distress Vasc: CFT < 3 sec x 5 digits right foot. DP and PT pulse is palpable 1/4. feet ibanez warm to touch. right hallux edema. Derm: medial right hallux at the level of the IPJ there is also with some purulent drainage and the ulceration probes to bone. there is erythema of the right hallux. does not extend to the MTP joint. Musc: no pain with palpation of the ulceration site or with squeeze or motion of the MPT or IP joints. Neuro: sensation absent to light touch. Results - Labs Result Diagrams: 02/22/17 05:03 02/22/17 05:03 Labs: Abnormal lab results RBC 3.94 M/mcL (4.19-5.50) L 02/22/17 05:03 Hgb 11.3 g/dL (12.9-16.9) L D 02/22/17 05:03 Hct 33.9 % (37.5-50.1) L 02/22/17 05:03 Reactive Lymphocytes Present (Not Present) A 02/21/17 06:09 ESR 85 mm/hr (0-10) H 02/21/17 06:09 Sodium 135 mEq/L (136-145) L 02/22/17 05:03 Glucose 151 mg/dL (70-99) H 02/22/17 05:03 POC Glucose 328 (58-89) H 02/22/17 00:10 Hemoglobin A1c 9.5 % (-5.6) H 02/20/17 16:39 C-Reactive Protein 8 mg/L (Less than 5) H 02/21/17 06:09 H & H 02/22/17 Range/Units 05:03 Hgb 11.3 L D (12.9-16.9) g/dL Hct 33.9 L (37.5-50.1) % All other labs normal. - Diagnostic results Ankle/Foot x-ray: report reviewed, image reviewed (MRI-osteomyelitis right distal and proximal phalanx of hallux xray-cortical destruction medial aspect of proximal and distal phalanx) Ankle/Foot MRI: report reviewed, image reviewed Consult Discharge Plan - Plan Referrals: Chidi Woody DO [Primary Care Provider] -
--- NOTE | 2017-02-22 16:22 | Anesthesia Evaluation PreOp ---
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: Other (diabetic peripheral neuropathy) Other Medical History: Diabetes Type II (insulin dependent) Alcohol Use: none Drug use: none Medications and Allergies Insulin DETEMIR [Levemir] 65 unit SQ HS 01/21/15 [History] Pregabalin [Lyrica] 200 mg PO BID 01/21/15 [History] Atorvastatin Calcium [Lipitor] 20 mg PO DAILY 12/27/16 [History] Liraglutide [Victoza 3-Scott] 1.8 mg SQ QAM 12/27/16 [History] Lisinopril [Zestril] 10 mg PO DAILY 12/27/16 [History] SitaGLIPtin [Januvia] 100 mg PO DAILY 02/20/17 [History] 3 Allergy/AdvReac Type Severity Reaction Status Date / Time duloxetine [From Cymbalta] Allergy Blister Verified 01/21/15 22:58 gabapentin Allergy Blister Verified 02/20/17 15:05 sulfamethoxazole Allergy Blister Verified 02/20/17 15:05 [From Bactrim] trimethoprim [From Bactrim] Allergy Blister Verified 02/20/17 15:05 - Meds/Allergy Pre-op Review Medications Reviewed: Yes Allergies Reviewed: Yes Beta Blockers on Current Med List: No Anesthesia Results - Labs 02/22/17 05:03 02/22/17 05:03 - Imaging EKG: report reviewed, image reviewed (SINUS TACHYCARDIA BASELINE ARTIFACT) Anesthesia Exam Last Vital Signs Temp 98 F 02/22/17 09:41 Pulse 84 02/22/17 09:41 Resp 16 02/22/17 09:41 BP 108/73 02/22/17 09:41 Pulse Ox 99 02/22/17 09:41 Weight: 79 kg - HEENT Pupil (Motor): Pupils equal, EOMI Mallampati: I Teeth: Normal Oral Opening: Greater than 3 - MESSAGE BROKER DEVELOPER LOC: Oriented MESSAGE BROKER DEVELOPER Sensory: Deficit: RLE, LLE - Cardiac Rhythm: Regular Murmur: None - Pulmonary Breath Sounds: bilateral Clear Respiratory Effort: Symmetrical Anesthesia Assess/Plan ASA Score: 3 Modified Nae Scale for Level of Consciousness: Cooperative, oriented, and tranquil Anesthetic Plan: MAC Monitoring Plan: Standard Monitors Recovery Plan: PACU
[2017-02-22] MEDS ORDERED: *HR* Propofol 200 MG/20 ML VIAL IVP ONE (16:29)
[2017-02-22] MEDS ORDERED: Lidocaine -MPF 2% 2 ML VIAL ONE (16:29)
--- NOTE | 2017-02-22 17:45 | Operative Note ---
Date of procedure: 02/22/17 Pre-op diagnosis: necrosis of bone with ulceration right foot Post-op diagnosis: same Procedure: incision and drainage to bone cortex for osteomyelitis right foot amputation of right great toe Implants: none Complications: none Anesthesia: MAC Local Anesthetics: Other (2% lidocaine plain) Surgeon: Tutu Clayton Estimated blood loss (cc): 10 Specimen: pathology-right great toe micro-right hallux soft tissue ulcer Condition: stable Disposition: PACU Procedure in Detail: Indications: 46-year-old diabetic male with a right great toe ulceration which is been present for approximately 3 months. The ulceration measures 3 cm x 1 cm x 1.5cm and probes to bone and has purulent drainage present. Nature of the procedures above discussed with patient at length preoperatively. Risks first benefits potential complications and consequences of the procedure discussed with patient at length and he understood that he could still have an infection and lose more of his foot or leg. All of his questions were answered and informed consent was signed. The patient was brought from the preoperative holding area and the operating room placed on the operating room table in the supine position. 12cc of 2% lidocaine plain was injected into the patient's right foot. The right foot was scrubbed prepped and draped in the usual sterile fashion and the following procedures began. Incision and drainage to bone cortex. Amputation of right great toe. A #15 blade was used to make an incision over the distal aspect of the first metatarsal extending across the metatarsophalangeal joint and over the interphalangeal joint of the right hallux. Sharp dissection was carried out down to the level of the periosteum and the soft tissue freed. With the soft tissues retracted the bone cortex was visualized which clinically at the proximal and distal phalanx of the right hallux was felt to be soft and devitalized in appearance, this was clinically consistent with osteomyelitis necessitating the need for amputation of the right hallux. It should be noted that the soft tissue and the hallux was also carreon and devitalized. Some of this tissue near the ulceration site was sent to microbiology for aerobic and anaerobic and gram stain. A #15 was used to disarticulate the hallux at the metatarsophalangeal joint. Some plantar soft tissue of the hallux which did not appear infected or contain devitalized tissue was salvaged and later used to flap and aid in closure of the amputation site The surgical amputation site was irrigated and inspected. No purulence or devitalized tissue was felt to be present at the level of the amputation. Healthy bleeding tissue was present. The first metatarsal bone was normal in color and not soft. The flexor and extensor tendons were identified and resected proximally. The surgical site was deemed adequate for closure. Adequate hemostasis was present. The plantar flap was then reconfigured and incorporated into closure of the skin at the amputation site by flapping the plantar aspect dorsally to provide coverage. 2- 0 Prolene was used to reapproximate the skin there was no tension on the skin. Postoperative bandaging included adaptic, 4 x 4 gauze, abdominal pad, Kerlix and an Camilo wrap. Patient tolerated the anesthesia and the procedure well and was escorted to recovery room with vital signs stable and vascular status intact to the right foot and remaining digits of the right foot noted by instant capillary refill time. Adequate hemostasis was present. He will be returned to the floor where he will continue IV antibiotics.
--- NOTE | 2017-02-22 17:47 | Anesthesia Evaluation Post Op ---
Date of Encounter: 02/22/17 Time of Encounter: 17:46 - Vital Signs Vital Signs: Last Vital Signs Temp 98 F 02/22/17 09:41 Pulse 88 02/22/17 16:30 Resp 16 02/22/17 16:30 BP 134/98 02/22/17 16:30 Pulse Ox 97 02/22/17 16:30 - Lungs Lungs: Clear Ascult./Percussion - Airway Airway: Non-obstructed - Cardiovascular Regular Rate - Mental Status Mental Status: Alert & Oriented, Answers Appropriately - Pain Pain Scale: 2 - Nausea Vomiting Nausea Vomiting: Not Present - Hydration Hydration: NPO - Discharge PostOp Status: Transfer Patient to floor
[2017-02-22] MEDS ORDERED: Dextrose Gel 15 GM PO PRN ×4 (19:12)
[2017-02-22] MEDS ORDERED: D5% in Water 1,000 ML IVC PRN (19:12)
[2017-02-22] MEDS ORDERED: Acetaminophen 325 MG TABLET PO PRN (19:12)
[2017-02-22] MEDS ORDERED: Naloxone 0.4 MG/ML INJ IVP PRN (19:12)
[2017-02-22] MEDS ORDERED: Ondansetron 4 MG/2 ML VIAL IVP PRN (19:12)
[2017-02-22] MEDS ORDERED: *HR* HYDROcodone/Acet 5/325 mg TABLET PO PRN (19:12)
[2017-02-22] MEDS ORDERED: *HR* Dextrose 50 % in Water (Syg) 50 ML SYRINGE IVP PRN (19:12)
[2017-02-22] MEDS ORDERED: *HR* Morphine 2 MG/ML SYRINGE IVP PRN (19:12)
[2017-02-22] MEDS ORDERED: Insulin DETEMIR 100 UNIT/ML X5UNITS SQ SCH (21:00)
[2017-02-23] MEDS ORDERED: Insulin LISPRO 300 UNITS/3 ML VIAL SQ SCH
[2017-02-23] MEDS: Vancomycin 1,500 MG in D5% in Water 250 ML IVPB SCH ×2 (01:03→12:28)
[2017-02-23 03:27] LABS: Basophils # 0.1 K/mcL (0.0-0.2); Basophils % 0.7 %; Eosinophils # 0.2 K/mcL (0.0-0.6); Eosinophils % 2.3 %; Hematocrit 33.8 % (37.5-50.1); Hemoglobin 11.3 g/dL (12.9-16.9); Immature Granulocytes % 0.3 % (0-4); Lymphocytes # 2.1 K/mcL (0.6-4.6); Lymphocytes % 20.4 %; Mean Corpuscular HGB Conc 33.4 g/dL (31.6-35.5); Mean Corpuscular Hemoglobin 28.6 pg (28.0-33.3); Mean Corpuscular Volume 85.6 fL (83.0-100.0); Mean Platelet Volume 11.3 fL (9.4-12.4); Monocytes % 9.5 %; Platelet Count 223 K/mcL (140-400); Red Blood Count 3.95 M/mcL (4.19-5.50); Red Cell Distribution Width 12.1 % (11.5-14.5); Segmented Neutrophils % 66.8 %
[2017-02-23 03:41] LABS: BUN/Creatinine Ratio 16 (6-26); Blood Urea Nitrogen 12 mg/dL (8-26); Calcium 8.7 mg/dL (8.6-10.8); Carbon Dioxide 25 mEq/L (19-29); Chloride 101 mEq/L (98-109); Glucose 306 mg/dL (70-99); Osmolality,Calculated 289 (280-300); Potassium 4.2 mEq/L (3.5-4.5); Sodium 134 mEq/L (136-145); eGFR For African Americans > 60 (> 60); eGFR For Non-African Americans > 60 (> 60)
[2017-02-23] MEDS: *HR* Enoxaparin 40 MG/0.4 ML SYRINGE SQ SCH (05:12)
[2017-02-23] MEDS: Pregabalin 50 MG CAPSULE PO SCH ×2 (08:00→20:32)
[2017-02-23] MEDS: Nicotine 14 MG PATCH.TD24 TD SCH (08:01)
[2017-02-23] MEDS: Piperacillin/Tazobactam 3.375 GM in D5% in Water 50 ML IVPB SCH ×2 (08:01→17:24)
[2017-02-23] MEDS: Insulin LISPRO 300 UNITS/3 ML VIAL SQ SCH ×4 (08:10→20:37)
--- NOTE | 2017-02-23 09:11 | Internal Med Progress Note ---
Date of Encounter: 02/23/17 Time of Encounter: 09:11 - Assessment and plan (1) Diabetes mellitus Current Visit: Yes Status: Acute Assessment and plan: Goal for glucose <180. Will need to increase basal insulin tonight. Uncontrolled at home, may have run in 200s-300s at baseline. Can resume 65 units basal insulin for tonight with humalog with meals. Qualifiers: Diabetes mellitus type: type 2 Diabetes mellitus complication status: with skin complications Diabetes mellitus complication detail: with foot ulcer Diabetes mellitus group home insulin use: with buttermaker use Qualified Code(s) : E11.621 - Type 2 diabetes mellitus with foot ulcer; L97.509 - Non-pressure chronic ulcer of other part of unspecified foot with unspecified severity; L97.509 - Non-pressure chronic ulcer of other part of unspecified foot with unspecified severity; L97.509 - Non-pressure chronic ulcer of other part of unspecified foot with unspecified severity; L97.509 - Non-pressure chronic ulcer of other part of unspecified foot with unspecified severity; Z79.4 - buttermaker (current) use of insulin; Z79.4 - longterm (current) use of insulin; Z79.4 - longterm (current) use of insulin; Z79.4 - buttermaker (current) use of insulin (2) Osteomyelitis Current Visit: Yes Status: Acute Assessment and plan: Status post amputation right great foot on 02/22, doing well. Qualifiers: Osteomyelitis type: subacute Osteomyelitis location: foot Laterality: right Qualified Code(s): M86.271 - Subacute osteomyelitis, right ankle and foot (3) Diabetic ulcer of toe Current Visit: Yes Status: Chronic Qualifiers: Diabetes mellitus type: other specified (including EUNICE) Laterality: right Non-pressure ulcer stage: unspecified non-pressure ulcer stage Qualified Code(s): E13.621 - Other specified diabetes mellitus with foot ulcer; L97.519 - Non-pressure chronic ulcer of other part of right foot with unspecified severity ; L97.519 - Non-pressure chronic ulcer of other part of right foot with unspecified severity; L97.519 - Non-pressure chronic ulcer of other part of right foot with unspecified severity; L97.519 - Non-pressure chronic ulcer of other part of right foot with unspecified severity (4) Noncompliance Current Visit: No Status: Acute (5) Tobacco abuse Current Visit: No Status: Acute (6) Hypertension Current Visit: No Status: Chronic Qualifiers: Hypertension type: essential hypertension Qualified Code(s): I10 - Essential (primary) hypertension - Subjective Interval history: present in room. No acute events. Doing well post op - Constitutional Vitals: Temp Pulse Resp BP Pulse Ox 98.3 F 62 16 136/60 97 02/23/17 08:12 02/23/17 08:12 02/23/17 08:12 02/23/17 08:12 02/23/17 08:12 General appearance: Present: A&O X 3, answers questions appropriately Exam: Gen Nad, AAOx3 CVS: RRR Lungs: CTAB Foot with clean dressing post amputation Internal Medicine: Result - Labs CBC & Chem 7: 02/24/17 05:20 02/24/17 05:20 Labs: Short CBC 02/23/17 Range/Units 02:53 WBC 10.4 (4.3-11.1) K/mcL Hgb 11.3 L (12.9-16.9) g/dL Hct 33.8 L (37.5-50.1) % Plt Count 223 (140-400) K/mcL Neutrophils # 7.0 (1.6-8.9) K/mcL BMP 02/23/17 02:53 Sodium 134 L Potassium 4.2 Chloride 101 Carbon Dioxide 25 BUN 12 Creatinine 0.76 Glucose 306 H Calcium 8.7 Consult Discharge Plan - Plan Referrals: Chidi Woody DO [Primary Care Provider] -
[2017-02-23] MEDS ORDERED: Insulin DETEMIR 100 UNIT/ML X5UNITS SQ ONE (09:15)
--- NOTE | 2017-02-23 11:14 | Podiatry Progress Note ---
Date of Encounter: 02/23/17 Time of Encounter: 10:00 - Assessment and Plan (1) Osteomyelitis Current Visit: Yes Status: Acute reviewed with patient surgical procedure and findings. will change bandage tomorrow. c/w heel weight bearing right LE in surgical shoe. f/u micro and path. antibiotics per infectious disease. Qualifiers: Osteomyelitis type: subacute Osteomyelitis location: foot Laterality: right Qualified Code(s): M86.271 - Subacute osteomyelitis, right ankle and foot Subjective Interval history: day #1 s/p right hallux amputation for osteomyelitis. he says his pain is controlled. He denies f/c/n/v/sob/cp. Says he is only putting weight on his heel in the surgical shoe. Objective - Vital Signs Vital Signs: Vital Signs Temp Pulse Resp BP Pulse Ox 02/23/17 08:12 98.3 F 62 16 136/60 97 02/22/17 23:56 98.0 F 93 17 133/87 97 02/22/17 19:00 98.1 F 83 16 134/83 99 02/22/17 18:00 97.9 F 90 16 117/75 99 02/22/17 16:30 88 16 134/98 97 Intake and Output 02/22/17 02/23/17 02/23/17 23:59 07:59 15:59 Intake Total 340 / 340 300 / 300 480 / 480 Output Total 660 / 660 800 / 800 Balance -320 / -320 300 / 300 -320 / -320 Intake: IV Fluids 300 / 300 Zosyn 3.375 GM In Dextrose 5% ( 50 / 50 ADD-[place]) 50 ML @ 12.5 mls/ hr IVPB Q8HR [facility] Rx#:[id number] Vancocin 1,500 MG In Dextrose 5 250 / 250 % 250 ML @ 166.67 mls/hr IVPB Q12H [facility] Rx#:[id number] Oral 340 / 340 480 / 480 Output: Urine 650 / 650 800 / 800 Estimated Blood Loss Other: Meal Breakfast Percent of Meal Consumed 100% # Voids 1 1 Blood Glucose* 232 177 - Exam Exam: well developed and nourished male in no acute distress Vasc: CFT < 3 sec x 4 remaining right foot digits and are warm to touch. Derm: bandage clean, dry, and intact. no strikethrough. Musc: no calf pain with squeeze b/l. Neuro: sensation absent to light touch. Tissue culture-pending Pathology right hallux-pending - Lab Result Diagrams: 02/23/17 02:53 02/23/17 02:53 Labs: Abnormal lab results RBC 3.95 M/mcL (4.19-5.50) L 02/23/17 02:53 Hgb 11.3 g/dL (12.9-16.9) L 02/23/17 02:53 Hct 33.8 % (37.5-50.1) L 02/23/17 02:53 Reactive Lymphocytes Present (Not Present) A 02/21/17 06:09 ESR 85 mm/hr (0-10) H 02/21/17 06:09 Sodium 134 mEq/L (136-145) L 02/23/17 02:53 Glucose 306 mg/dL (70-99) H 02/23/17 02:53 POC Glucose 232 (58-89) H 02/22/17 21:17 Hemoglobin A1c 9.5 % (-5.6) H 02/20/17 16:39 C-Reactive Protein 8 mg/L (Less than 5) H 02/21/17 06:09 Microbiology, Last 48 Hours 02/22/17 17:41 Surgical Biopsy Culture - Preliminary Right Foot 02/21/17 12:42 Gram Stain - Preliminary Right Great Toe Consult Discharge Plan - Plan Referrals: Chidi Woody DO [Primary Care Provider] -
[2017-02-23] MEDS ORDERED: Insulin DETEMIR 100 UNIT/ML X5UNITS SQ SCH (21:00)
[2017-02-24] MEDS: Vancomycin 1,500 MG in D5% in Water 250 ML IVPB SCH ×2 (01:11→13:37)
[2017-02-24] MEDS: Piperacillin/Tazobactam 3.375 GM in D5% in Water 50 ML IVPB SCH ×3 (01:12→18:17)
[2017-02-24 05:45] LABS: Basophils % 0.5 %; Eosinophils # 0.3 K/mcL (0.0-0.6); Eosinophils % 4.2 %; Hematocrit 37.4 % (37.5-50.1); Hemoglobin 12.2 g/dL (12.9-16.9); Immature Granulocytes % 0.4 % (0-4); Lymphocytes # 1.7 K/mcL (0.6-4.6); Mean Corpuscular HGB Conc 32.6 g/dL (31.6-35.5); Mean Corpuscular Hemoglobin 28.4 pg (28.0-33.3); Mean Corpuscular Volume 87.2 fL (83.0-100.0); Mean Platelet Volume 10.9 fL (9.4-12.4); Monocytes # 0.8 K/mcL (0.0-1.3); Monocytes % 10.4 %; Neutrophils # 4.9 K/mcL (1.6-8.9); Platelet Count 226 K/mcL (140-400); Red Blood Count 4.29 M/mcL (4.19-5.50); Red Cell Distribution Width 12.3 % (11.5-14.5); Segmented Neutrophils % 62.5 %
[2017-02-24 06:03] LABS: BUN/Creatinine Ratio 17 (6-26); Blood Urea Nitrogen 12 mg/dL (8-26); Carbon Dioxide 28 mEq/L (19-29); Chloride 102 mEq/L (98-109); Glucose 152 mg/dL (70-99); Osmolality,Calculated 287 (280-300); Potassium 4.1 mEq/L (3.5-4.5); Sodium 137 mEq/L (136-145); eGFR For African Americans > 60 (> 60); eGFR For Non-African Americans > 60 (> 60)
[2017-02-24] MEDS: *HR* Enoxaparin 40 MG/0.4 ML SYRINGE SQ SCH (06:44)
[2017-02-24] MEDS: Nicotine 14 MG PATCH.TD24 TD SCH (08:18)
[2017-02-24] MEDS: Insulin LISPRO 300 UNITS/3 ML VIAL SQ SCH ×6 (08:21→20:50)
[2017-02-24] MEDS: Pregabalin 50 MG CAPSULE PO SCH ×2 (08:23→20:49)
--- NOTE | 2017-02-24 09:56 | Podiatry Progress Note ---
Date of Encounter: 02/24/17 Time of Encounter: 09:30 - Assessment and Plan (1) Osteomyelitis Current Visit: Yes Status: Acute reviewed with patient course of recovery. bandage changed, no wound dehiscence. leave bandage clean, dry, and intact. no bandage change at home. c/w heel weight bearing right LE in surgical shoe. f/u micro and path. discharge antibiotics per infectious disease. Qualifiers: Osteomyelitis type: subacute Osteomyelitis location: foot Laterality: right Qualified Code(s): M86.271 - Subacute osteomyelitis, right ankle and foot Subjective Interval history: day #2 s/p right hallux amputation for osteomyelitis. he says his pain is controlled. He denies f/c/n/v/sob/cp. Does report a couple episodes of diarrhea since yesterday. He says it may be from the ensure protein drink he started yesterday. Says he is only putting weight on his heel in the surgical shoe. Objective - Vital Signs Vital Signs: Vital Signs Temp Pulse Resp BP Pulse Ox 02/24/17 06:25 97.9 F 86 18 120/74 98 02/24/17 00:26 98.4 F 83 18 111/77 99 02/23/17 20:37 98.2 F 90 19 114/75 99 02/23/17 16:23 98.1 F 89 14 122/79 98 02/23/17 11:56 98.8 F 82 16 132/68 97 Intake and Output 02/23/17 02/24/17 02/24/17 23:59 07:59 15:59 Intake Total 530 / 530 650 / 650 240 / 240 Balance 530 / 530 650 / 650 240 / 240 Intake: IV Fluids 50 / 50 50 / 50 Zosyn 3.375 GM In Dextrose 5% ( 50 / 50 50 / 50 ADD-[place]) 50 ML @ 12.5 mls/ hr IVPB Q8HR [facility] Rx#:[id number] Oral 480 / 480 600 / 600 240 / 240 Other: Meal Lunch Breakfast Percent of Meal Consumed 100% 100% # Voids 1 Weight 78.1 kg Blood Glucose* 318 136 Patient Weight 02/24/17 23:59 Weight 78.1 kg - Exam Exam: well developed and nourished male in no acute distress Vasc: DP pulse palpable. CFT < 3 sec x 4 remaining digits of the right foot. mild edema. Derm: sutures intact. no drainage, no purulence or fluctuance. no ascending erythema. no wound dehiscence. Musc: no pain with palpation. good ankle and STJ ROM. Neuro: sensation absent to light touch. - Radiology X-Rays: image reviewed (consistent with amputation of the right hallux) - Lab Result Diagrams: 02/24/17 05:20 02/24/17 05:20 Labs: Abnormal lab results Hgb 12.2 g/dL (12.9-16.9) L 02/24/17 05:20 Hct 37.4 % (37.5-50.1) L 02/24/17 05:20 Reactive Lymphocytes Present (Not Present) A 02/21/17 06:09 ESR 85 mm/hr (0-10) H 02/21/17 06:09 Creatinine 0.71 mg/dL (0.72-1.25) L 02/24/17 05:20 Glucose 152 mg/dL (70-99) H 02/24/17 05:20 POC Glucose 318 (58-89) H 02/23/17 20:22 Hemoglobin A1c 9.5 % (-5.6) H 02/20/17 16:39 C-Reactive Protein 8 mg/L (Less than 5) H 02/21/17 06:09 Microbiology, Last 48 Hours 02/22/17 17:41 Surgical Biopsy Culture - Preliminary Right Foot 02/21/17 12:42 Wound Culture - Preliminary Right Great Toe Enterococcus species 02/21/17 12:42 Gram Stain - Final Right Great Toe Consult Discharge Plan - Plan Referrals: Chidi Woody DO [Primary Care Provider] -
[2017-02-24] MEDS: Insulin DETEMIR 100 UNIT/ML X5UNITS SQ SCH (20:50)
[2017-02-25] MEDS: Vancomycin 1,500 MG in D5% in Water 250 ML IVPB SCH ×2 (00:03→12:05)
--- NOTE | 2017-02-25 00:11 | Internal Med Progress Note ---
Date of Encounter: 02/22/17 Time of Encounter: 09:10 - Assessment and plan (1) Diabetes mellitus Current Visit: Yes Status: Acute Assessment and plan: Will tighten glycemic control when patient tolerates diabetic diet. Goal for glucose <180 Qualifiers: Diabetes mellitus type: type 2 Diabetes mellitus complication status: with skin complications Diabetes mellitus complication detail: with foot ulcer Diabetes mellitus custodial insulin use: with custodial use Qualified Code(s) : E11.621 - Type 2 diabetes mellitus with foot ulcer; L97.509 - Non-pressure chronic ulcer of other part of unspecified foot with unspecified severity; L97.509 - Non-pressure chronic ulcer of other part of unspecified foot with unspecified severity; L97.509 - Non-pressure chronic ulcer of other part of unspecified foot with unspecified severity; L97.509 - Non-pressure chronic ulcer of other part of unspecified foot with unspecified severity; Z79.4 - FPC (current) use of insulin; Z79.4 - FPC (current) use of insulin; Z79.4 - [facility] (current) use of insulin; Z79.4 - middle or intermediate school principal (current) use of insulin (2) Osteomyelitis Current Visit: Yes Status: Acute Assessment and plan: Patient willing to do surgery. RN calling Podiatry/OR for scheduling. Qualifiers: Osteomyelitis type: subacute Osteomyelitis location: foot Laterality: right Qualified Code(s): M86.271 - Subacute osteomyelitis, right ankle and foot (3) Diabetic ulcer of toe Current Visit: Yes Status: Chronic Qualifiers: Diabetes mellitus type: other specified (including EUNICE) Laterality: right Non-pressure ulcer stage: unspecified non-pressure ulcer stage Qualified Code(s): E13.621 - Other specified diabetes mellitus with foot ulcer; L97.519 - Non-pressure chronic ulcer of other part of right foot with unspecified severity ; L97.519 - Non-pressure chronic ulcer of other part of right foot with unspecified severity; L97.519 - Non-pressure chronic ulcer of other part of right foot with unspecified severity; L97.519 - Non-pressure chronic ulcer of other part of right foot with unspecified severity (4) Noncompliance Current Visit: No Status: Acute (5) Tobacco abuse Current Visit: No Status: Acute (6) Hypertension Current Visit: No Status: Chronic Qualifiers: Hypertension type: essential hypertension Qualified Code(s): I10 - Essential (primary) hypertension - Subjective Interval history: Patient decided he is willing to do operation today. - Constitutional Vitals: Temp Pulse Resp BP Pulse Ox 98.0 F 85 18 133/73 99 02/24/17 23:57 02/24/17 23:57 02/24/17 23:57 02/24/17 23:57 02/24/17 23:57 General appearance: Present: A&O X 3, answers questions appropriately Exam: Gen Nad, AAOx3 CVS: RRR Lungs: CTAB Right foot wrapped with clean dressing. No foul odor, dressing c/d/i. No edema Internal Medicine: Result - Labs CBC & Chem 7: 02/24/17 05:20 02/24/17 05:20 Labs: Short CBC 02/24/17 Range/Units 05:20 WBC 7.8 (4.3-11.1) K/mcL Hgb 12.2 L (12.9-16.9) g/dL Hct 37.4 L (37.5-50.1) % Plt Count 226 (140-400) K/mcL Neutrophils # 4.9 (1.6-8.9) K/mcL BMP 02/24/17 05:20 Sodium 137 Potassium 4.1 Chloride 102 Carbon Dioxide 28 BUN 12 Creatinine 0.71 L Glucose 152 H Calcium 9.0 Consult Discharge Plan - Plan Referrals: Chidi Woody DO [Primary Care Provider] -
--- NOTE | 2017-02-25 00:25 | Internal Med Progress Note ---
Date of Encounter: 02/24/17 Time of Encounter: 14:23 - Assessment and plan (1) Diabetes mellitus Current Visit: Yes Status: Acute Assessment and plan: Goal for glucose <180. Will need to increase basal insulin tonight. Uncontrolled at home, may have run in 200s-300s at baseline and so 65 units levemir may not be enough. He did have a glucose of 105 at some point today, would like to avoid hypoglycemic episodes as well. Will increase basal insulin cautiously Qualifiers: Diabetes mellitus type: type 2 Diabetes mellitus complication status: with skin complications Diabetes mellitus complication detail: with foot ulcer Diabetes mellitus care home insulin use: with manager terminal use Qualified Code(s) : E11.621 - Type 2 diabetes mellitus with foot ulcer; L97.509 - Non-pressure chronic ulcer of other part of unspecified foot with unspecified severity; L97.509 - Non-pressure chronic ulcer of other part of unspecified foot with unspecified severity; L97.509 - Non-pressure chronic ulcer of other part of unspecified foot with unspecified severity; L97.509 - Non-pressure chronic ulcer of other part of unspecified foot with unspecified severity; Z79.4 - termite technician (current) use of insulin; Z79.4 - termite technician (current) use of insulin; Z79.4 - termite technician (current) use of insulin; Z79.4 - termite technician (current) use of insulin (2) Osteomyelitis Current Visit: Yes Status: Acute Qualifiers: Osteomyelitis type: subacute Osteomyelitis location: foot Laterality: right Qualified Code(s): M86.271 - Subacute osteomyelitis, right ankle and foot (3) Diabetic ulcer of toe Current Visit: Yes Status: Chronic Qualifiers: Diabetes mellitus type: other specified (including EUNICE) Laterality: right Non-pressure ulcer stage: unspecified non-pressure ulcer stage Qualified Code(s): E13.621 - Other specified diabetes mellitus with foot ulcer; L97.519 - Non-pressure chronic ulcer of other part of right foot with unspecified severity ; L97.519 - Non-pressure chronic ulcer of other part of right foot with unspecified severity; L97.519 - Non-pressure chronic ulcer of other part of right foot with unspecified severity; L97.519 - Non-pressure chronic ulcer of other part of right foot with unspecified severity (4) Noncompliance Current Visit: No Status: Acute (5) Tobacco abuse Current Visit: No Status: Acute (6) Hypertension Current Visit: No Status: Chronic Qualifiers: Hypertension type: essential hypertension Qualified Code(s): I10 - Essential (primary) hypertension - Subjective Interval history: present in room. No complaints - Constitutional Vitals: Temp Pulse Resp BP Pulse Ox 98.0 F 85 18 133/73 99 02/24/17 23:57 02/24/17 23:57 02/24/17 23:57 02/24/17 23:57 02/24/17 23:57 General appearance: Present: A&O X 3, answers questions appropriately Exam: Gen: NAD CVS: RRR Lungs: CTAB Abd: NT/ND Ext: right foot wrapped, trace edema at ankles. Internal Medicine: Result - Labs CBC & Chem 7: 02/24/17 05:20 02/24/17 05:20 Labs: Short CBC 02/24/17 Range/Units 05:20 WBC 7.8 (4.3-11.1) K/mcL Hgb 12.2 L (12.9-16.9) g/dL Hct 37.4 L (37.5-50.1) % Plt Count 226 (140-400) K/mcL Neutrophils # 4.9 (1.6-8.9) K/mcL BMP 02/24/17 05:20 Sodium 137 Potassium 4.1 Chloride 102 Carbon Dioxide 28 BUN 12 Creatinine 0.71 L Glucose 152 H Calcium 9.0 Consult Discharge Plan - Plan Referrals: Chidi Woody DO [Primary Care Provider] -
[2017-02-25] MEDS: Piperacillin/Tazobactam 3.375 GM in D5% in Water 50 ML IVPB SCH ×2 (01:02→08:11)
[2017-02-25] MEDS: *HR* Enoxaparin 40 MG/0.4 ML SYRINGE SQ SCH (05:27)
[2017-02-25 05:46] LABS: Basophils # 0.1 K/mcL (0.0-0.2); Basophils % 0.8 %; Eosinophils # 0.4 K/mcL (0.0-0.6); Eosinophils % 4.8 %; Hematocrit 35.4 % (37.5-50.1); Hemoglobin 11.6 g/dL (12.9-16.9); Immature Granulocytes % 0.3 % (0-4); Lymphocytes # 2.1 K/mcL (0.6-4.6); Lymphocytes % 26.8 %; Mean Corpuscular HGB Conc 32.8 g/dL (31.6-35.5); Mean Corpuscular Hemoglobin 28.2 pg (28.0-33.3); Mean Corpuscular Volume 86.1 fL (83.0-100.0); Mean Platelet Volume 11.4 fL (9.4-12.4); Monocytes # 0.8 K/mcL (0.0-1.3); Monocytes % 9.8 %; Neutrophils # 4.5 K/mcL (1.6-8.9); Platelet Count 215 K/mcL (140-400); Red Blood Count 4.11 M/mcL (4.19-5.50); Red Cell Distribution Width 12.2 % (11.5-14.5); Segmented Neutrophils % 57.5 %
[2017-02-25 06:11] LABS: BUN/Creatinine Ratio 22 (6-26); Blood Urea Nitrogen 17 mg/dL (8-26); Calcium 9.2 mg/dL (8.6-10.8); Carbon Dioxide 28 mEq/L (19-29); Chloride 102 mEq/L (98-109); Glucose 270 mg/dL (70-99); Osmolality,Calculated 293 (280-300); Potassium 4.5 mEq/L (3.5-4.5); Sodium 136 mEq/L (136-145); eGFR For African Americans > 60 (> 60); eGFR For Non-African Americans > 60 (> 60)
[2017-02-25] MEDS: Pregabalin 50 MG CAPSULE PO SCH ×2 (08:10→20:37)
[2017-02-25] MEDS: Insulin LISPRO 300 UNITS/3 ML VIAL SQ SCH ×7 (08:11→20:39)
[2017-02-25] MEDS: Nicotine 14 MG PATCH.TD24 TD SCH (08:12)
--- NOTE | 2017-02-25 11:00 | Infectious Disease Progress No ---
Date of Encounter: 02/25/17 Time of Encounter: 10:58 - Assessment and Plan (1) Sepsis Current Visit: Yes Status: Acute Qualifiers: Sepsis type: sepsis due to unspecified organism Qualified Code(s): A41.9 - Sepsis, unspecified organism (2) Osteomyelitis Current Visit: Yes Status: Acute Qualifiers: Osteomyelitis type: subacute Osteomyelitis location: foot Laterality: right Qualified Code(s): M86.271 - Subacute osteomyelitis, right ankle and foot (3) Diabetic ulcer of toe Current Visit: Yes Status: Chronic Qualifiers: Diabetes mellitus type: other specified (including EUNICE) Laterality: right Non-pressure ulcer stage: unspecified non-pressure ulcer stage Qualified Code(s): E13.621 - Other specified diabetes mellitus with foot ulcer; L97.519 - Non-pressure chronic ulcer of other part of right foot with unspecified severity ; L97.519 - Non-pressure chronic ulcer of other part of right foot with unspecified severity; L97.519 - Non-pressure chronic ulcer of other part of right foot with unspecified severity; L97.519 - Non-pressure chronic ulcer of other part of right foot with unspecified severity (4) Hyperglycemia Current Visit: No Status: Acute (5) Tobacco abuse Current Visit: No Status: Acute (6) Diabetes mellitus Current Visit: Yes Status: Acute Qualifiers: Diabetes mellitus type: type 2 Diabetes mellitus complication status: with skin complications Diabetes mellitus complication detail: with foot ulcer Diabetes mellitus termite treater helper insulin use: with assisted use Qualified Code(s) : E11.621 - Type 2 diabetes mellitus with foot ulcer; L97.509 - Non-pressure chronic ulcer of other part of unspecified foot with unspecified severity; L97.509 - Non-pressure chronic ulcer of other part of unspecified foot with unspecified severity; L97.509 - Non-pressure chronic ulcer of other part of unspecified foot with unspecified severity; L97.509 - Non-pressure chronic ulcer of other part of unspecified foot with unspecified severity; Z79.4 - nursing home (current) use of insulin; Z79.4 - termite treater helper (current) use of insulin; Z79.4 - nursing home (current) use of insulin; Z79.4 - termite treater helper (current) use of insulin (7) Hypertension Current Visit: No Status: Chronic Qualifiers: Hypertension type: essential hypertension Qualified Code(s): I10 - Essential (primary) hypertension Infect Dis PN-Objective Data - Labs CBC & Chem 7: 02/25/17 05:19 02/25/17 05:19 Labs: Laboratory Results - last 24 hr 02/22/17 02/23/17 02/23/17 05:03 08:10 12:15 WBC RBC Hgb Hct MCV MCH MCHC RDW Plt Count MPV Immature Gran % Seg Neutrophils % Lymphocytes % Monocytes % Eosinophils % Basophils % Neutrophils # Lymphocytes # Monocytes # Eosinophils # Basophils # Sodium Potassium Chloride Carbon Dioxide BUN Creatinine Est GFR ( Amer) Est GFR (Non-Af Amer) BUN/Creatinine Ratio Glucose POC Glucose 177 H 230 H Calculated Osmolality Calcium Procalcitonin <0.07 Vancomycin Trough 02/24/17 02/24/17 02/24/17 07:02 11:33 12:20 WBC RBC Hgb Hct MCV MCH MCHC RDW Plt Count MPV Immature Gran % Seg Neutrophils % Lymphocytes % Monocytes % Eosinophils % Basophils % Neutrophils # Lymphocytes # Monocytes # Eosinophils # Basophils # Sodium Potassium Chloride Carbon Dioxide BUN Creatinine Est GFR ( Amer) Est GFR (Non-Af Amer) BUN/Creatinine Ratio Glucose POC Glucose 136 H 172 H Calculated Osmolality Calcium Procalcitonin Vancomycin Trough 13.4 02/24/17 02/24/17 02/25/17 16:23 20:08 05:19 WBC 7.9 RBC 4.11 L Hgb 11.6 L Hct 35.4 L MCV 86.1 MCH 28.2 MCHC 32.8 RDW 12.2 Plt Count 215 MPV 11.4 Immature Gran % 0.3 Seg Neutrophils % 57.5 Lymphocytes % 26.8 Monocytes % 9.8 Eosinophils % 4.8 Basophils % 0.8 Neutrophils # 4.5 Lymphocytes # 2.1 Monocytes # 0.8 Eosinophils # 0.4 Basophils # 0.1 Sodium Potassium Chloride Carbon Dioxide BUN Creatinine Est GFR ( Amer) Est GFR (Non-Af Amer) BUN/Creatinine Ratio Glucose POC Glucose 198 H 270 H Calculated Osmolality Calcium Procalcitonin Vancomycin Trough 02/25/17 05:19 WBC RBC Hgb Hct MCV MCH MCHC RDW Plt Count MPV Immature Gran % Seg Neutrophils % Lymphocytes % Monocytes % Eosinophils % Basophils % Neutrophils # Lymphocytes # Monocytes # Eosinophils # Basophils # Sodium 136 Potassium 4.5 Chloride 102 Carbon Dioxide 28 BUN 17 Creatinine 0.79 Est GFR ( Amer) > 60 Est GFR (Non-Af Amer) > 60 BUN/Creatinine Ratio 22 Glucose 270 H POC Glucose Calculated Osmolality 293 Calcium 9.2 Procalcitonin Vancomycin Trough Cultures: Cultures 02/22/17 17:41 Surgical Biopsy Culture - Preliminary Right Foot Enterococcus species Strep agalactiae - (Group B) 02/21/17 12:42 Wound Culture - Final Right Great Toe Enterococcus species 02/21/17 12:42 Gram Stain - Final Right Great Toe Exam - Constitutional Vitals: Temp Pulse Resp BP Pulse Ox 98.3 F 91 16 136/79 99 02/25/17 06:41 02/25/17 06:41 02/25/17 06:41 02/25/17 06:41 02/25/17 06:41 Consult Discharge Plan - Plan Referrals: Chidi Woody DO [Primary Care Provider] - Prescriptions: Vancomycin [Vancocin] 1,500 mg IV Q12H 42 Days vial
--- NOTE | 2017-02-25 11:42 | Infectious Disease Progress No ---
Date of Encounter: 02/25/17 Time of Encounter: 11:40 - Assessment and Plan (1) Sepsis Current Visit: Yes Status: Acute The patient had two SIRS criteria. Likely secondary to right foot OM. Improved. Tachycardia has resolved. WBC has normalized. Blood cultures drawn 02/20/17 are negative x 2 sets. Qualifiers: Sepsis type: sepsis due to unspecified organism Qualified Code(s): A41.9 - Sepsis, unspecified organism (2) Osteomyelitis Current Visit: Yes Status: Acute Location: Right great toe. Causative organism Enterococcus and GBS. Likely secondary to diabetic foot ulcer. Failed outpatient oral antibiotics. MRI of the right foot showed OM of the distal and proximal phalanges as well as cellulitis. ESR 85, CRP 8. Podiatry consulted. Status post right great toe amputation 02/22/17. Operative note reviewed. Continue Vancomycin IV. Pharmacy to dose. Goal trough ~15. Discontinue Zosyn. Consult VAT for PICC line placement. We will plan to use Vancomycin for ease of administration at home. Duration of treatment depends on the clinical picture, but likely 6 weeks. Monitor renal function and for drug toxicity and dose-adjust antibiotics. Wound care and activity restrictions per the podiatry team. environmental services attendant consulted to assist with discharge planning. Will need weekly CBC, BUN/Cr, ESR, CRP, and Vanc trough every Saturday for the duration of treatment. Weekly PICC care per protocol. Follow up with ID 03/11/17 at 0900. Qualifiers: Osteomyelitis type: subacute Osteomyelitis location: foot Laterality: right Qualified Code(s): M86.271 - Subacute osteomyelitis, right ankle and foot (3) Diabetic ulcer of toe Current Visit: Yes Status: Resolved Status post amputation of the right great toe. Qualifiers: Diabetes mellitus type: other specified (including EUNICE) Laterality: right Non-pressure ulcer stage: unspecified non-pressure ulcer stage Qualified Code(s): E13.621 - Other specified diabetes mellitus with foot ulcer; L97.519 - Non-pressure chronic ulcer of other part of right foot with unspecified severity ; L97.519 - Non-pressure chronic ulcer of other part of right foot with unspecified severity; L97.519 - Non-pressure chronic ulcer of other part of right foot with unspecified severity; L97.519 - Non-pressure chronic ulcer of other part of right foot with unspecified severity (4) Hyperglycemia Current Visit: No Status: Acute (5) Tobacco abuse Current Visit: No Status: Acute (6) Diabetes mellitus Current Visit: Yes Status: Acute Uncontrolled. Hgb A1C 9.5%. Recommend aggressive glucose monitoring and control to promote wound healing and prevent re-infection. Management per the primary team. Qualifiers: Diabetes mellitus type: type 2 Diabetes mellitus complication status: with skin complications Diabetes mellitus complication detail: with foot ulcer Diabetes mellitus intermediate manager insulin use: with intermediate manager use Qualified Code(s) : E11.621 - Type 2 diabetes mellitus with foot ulcer; L97.509 - Non-pressure chronic ulcer of other part of unspecified foot with unspecified severity; L97.509 - Non-pressure chronic ulcer of other part of unspecified foot with unspecified severity; L97.509 - Non-pressure chronic ulcer of other part of unspecified foot with unspecified severity; L97.509 - Non-pressure chronic ulcer of other part of unspecified foot with unspecified severity; Z79.4 - intermediate manager (current) use of insulin; Z79.4 - intermediate manager (current) use of insulin; Z79.4 - intermediate manager (current) use of insulin; Z79.4 - intermediate manager (current) use of insulin (7) Hypertension Current Visit: No Status: Chronic Qualifiers: Hypertension type: essential hypertension Qualified Code(s): I10 - Essential (primary) hypertension - Subjective Interval history: Patient seen and examined. Weekend notes reviewed. No acute events noted. Status post great toe amputation 02/22/[address] Clayton. Denies fevers, chills, rigors. Denies chest pain, shortness of breath, or cough. Denies nausea, vomiting, or diarrhea. Denies abdominal pain, urinary complaints, or appetite changes. Denies pain at the surgical site. Denies oral thrush or skin lesions. Infect Dis PN-Objective Data - Labs CBC & Chem 7: 02/25/17 05:19 02/25/17 05:19 Labs: Laboratory Results - last 24 hr 02/22/17 02/23/17 02/23/17 05:03 08:10 12:15 WBC RBC Hgb Hct MCV MCH MCHC RDW Plt Count MPV Immature Gran % Seg Neutrophils % Lymphocytes % Monocytes % Eosinophils % Basophils % Neutrophils # Lymphocytes # Monocytes # Eosinophils # Basophils # Sodium Potassium Chloride Carbon Dioxide BUN Creatinine Est GFR ( Amer) Est GFR (Non-Af Amer) BUN/Creatinine Ratio Glucose POC Glucose 177 H 230 H Calculated Osmolality Calcium Procalcitonin <0.07 Vancomycin Trough 02/24/17 02/24/17 02/24/17 07:02 11:33 12:20 WBC RBC Hgb Hct MCV MCH MCHC RDW Plt Count MPV Immature Gran % Seg Neutrophils % Lymphocytes % Monocytes % Eosinophils % Basophils % Neutrophils # Lymphocytes # Monocytes # Eosinophils # Basophils # Sodium Potassium Chloride Carbon Dioxide BUN Creatinine Est GFR ( Amer) Est GFR (Non-Af Amer) BUN/Creatinine Ratio Glucose POC Glucose 136 H 172 H Calculated Osmolality Calcium Procalcitonin Vancomycin Trough 13.4 02/24/17 02/24/17 02/25/17 16:23 20:08 05:19 WBC 7.9 RBC 4.11 L Hgb 11.6 L Hct 35.4 L MCV 86.1 MCH 28.2 MCHC 32.8 RDW 12.2 Plt Count 215 MPV 11.4 Immature Gran % 0.3 Seg Neutrophils % 57.5 Lymphocytes % 26.8 Monocytes % 9.8 Eosinophils % 4.8 Basophils % 0.8 Neutrophils # 4.5 Lymphocytes # 2.1 Monocytes # 0.8 Eosinophils # 0.4 Basophils # 0.1 Sodium Potassium Chloride Carbon Dioxide BUN Creatinine Est GFR ( Amer) Est GFR (Non-Af Amer) BUN/Creatinine Ratio Glucose POC Glucose 198 H 270 H Calculated Osmolality Calcium Procalcitonin Vancomycin Trough 02/25/17 05:19 WBC RBC Hgb Hct MCV MCH MCHC RDW Plt Count MPV Immature Gran % Seg Neutrophils % Lymphocytes % Monocytes % Eosinophils % Basophils % Neutrophils # Lymphocytes # Monocytes # Eosinophils # Basophils # Sodium 136 Potassium 4.5 Chloride 102 Carbon Dioxide 28 BUN 17 Creatinine 0.79 Est GFR ( Amer) > 60 Est GFR (Non-Af Amer) > 60 BUN/Creatinine Ratio 22 Glucose 270 H POC Glucose Calculated Osmolality 293 Calcium 9.2 Procalcitonin Vancomycin Trough Cultures: Cultures 02/22/17 17:41 Surgical Biopsy Culture - Preliminary Right Foot Enterococcus species Strep agalactiae - (Group B) 02/21/17 12:42 Wound Culture - Final Right Great Toe Enterococcus species 02/21/17 12:42 Gram Stain - Final Right Great Toe Exam - Constitutional Vitals: Temp Pulse Resp BP Pulse Ox 97.9 F 94 16 142/81 99 02/25/17 11:17 02/25/17 11:17 02/25/17 11:17 02/25/17 11:17 02/25/17 11:17 General appearance: average body habitus, cooperative, no acute distress - Head Head exam: Present: atraumatic, normal inspection, normocephalic - Eye Eye exam: Present: EOMI, normal appearance, PERRL Pupils: Present: normal accommodation - ENT ENT exam: Present: mucous membranes moist - Neck Neck exam: Present: normal inspection - Respiratory Respiratory exam: Present: CTAB. Absent: rales, respiratory distress, rhonchi, wheezes - Cardiovascular Cardiovascular exam: Present: RRR, +S1, +S2 - GI/Abdominal GI/Abdominal exam: Present: normal bowel sounds, soft. Absent: distended, tenderness - Extremities Exam Extremities exam: Present: normal inspection. Absent: joint swelling, pedal edema, tenderness Additional comments: Right foot dressing C/D/I. - Neurological Exam Neurological exam: Present: alert, oriented X3, no focal deficits - Psychiatric Psychiatric exam: Present: normal affect, normal mood - Skin Skin exam: Present: dry, intact, normal color, warm Consult Discharge Plan - Plan Referrals: Chidi Woody DO [Primary Care Provider] - Pamela Bruce, EPITAXIAL REACTOR OPERATOR [Advanced Practice Nurse] - 03/11/17 9:00 am Prescriptions: Vancomycin [Vancocin] 1,500 mg IV Q12H 42 Days vial
[2017-02-25] MEDS ORDERED: Lidocaine -MPF 1% 5 ML AMPUL INFILT ONE (11:47)
[2017-02-25] MEDS ORDERED: FLUARIX QUAD 2017-18 36MOS UP/PF 0.5 ML SYRINGE IM ONE (16:56)
--- NOTE | 2017-02-25 17:01 | Podiatry Progress Note ---
Date of Encounter: 02/25/17 Time of Encounter: 16:45 - Assessment and Plan (1) Diabetes mellitus Current Visit: Yes Qualifiers: Diabetes mellitus type: type 2 Diabetes mellitus complication status: with skin complications Diabetes mellitus complication detail: with foot ulcer Diabetes mellitus watermelon inspector insulin use: with senior care use Qualified Code(s) : E11.621 - Type 2 diabetes mellitus with foot ulcer; L97.509 - Non-pressure chronic ulcer of other part of unspecified foot with unspecified severity; L97.509 - Non-pressure chronic ulcer of other part of unspecified foot with unspecified severity; L97.509 - Non-pressure chronic ulcer of other part of unspecified foot with unspecified severity; L97.509 - Non-pressure chronic ulcer of other part of unspecified foot with unspecified severity; Z79.4 - assisted (current) use of insulin; Z79.4 - technician terminal and repeater (current) use of insulin; Z79.4 - technician terminal and repeater (current) use of insulin; Z79.4 - technician terminal and repeater (current) use of insulin (2) Diabetic ulcer of toe Current Visit: Yes Status: Resolved S/p right hallux amputation for osteomyelitis on by Dr. Clayton. Incision line healing uneventfully, no signs of dehiscence. Microbiology 02/22/17 17:41 Surgical Biopsy Culture - Preliminary Right Foot Enterococcus species Strep agalactiae - (Group B) 02/21/17 12:42 Wound Culture - Final Right Great Toe Enterococcus species Plan: Keep dressing dry clean and intact until postop visit. Keep weight off of right forefoot. Short cam boot ordered for RLE, keep weight on heel. PT educated and instructed patient on use with crutches. Antibiotic therapy per ID. Patient needs to f/u in Podiatry clinic with Demetrius Ruiz CNP, Irena Swift CNP or Dr. Clayton one week after discharge from the hospital. Qualifiers: Diabetes mellitus type: other specified (including EUNICE) Laterality: right Non-pressure ulcer stage: unspecified non-pressure ulcer stage Qualified Code(s): E13.621 - Other specified diabetes mellitus with foot ulcer; L97.519 - Non-pressure chronic ulcer of other part of right foot with unspecified severity ; L97.519 - Non-pressure chronic ulcer of other part of right foot with unspecified severity; L97.519 - Non-pressure chronic ulcer of other part of right foot with unspecified severity; L97.519 - Non-pressure chronic ulcer of other part of right foot with unspecified severity Subjective Interval history: Patient is s/p right hallux amputation for osteomyelitis. Pain is controlled. Patient is being discharged today. No c/o fever, chills, cp, sob or calf pain. Patients is at bedside. Patient states he is having a hard time keeping his weight on the right heel with the post op shoe. PT at the bedside and educating patient with crutch use. Objective - Vital Signs Vital Signs: Vital Signs Temp Pulse Resp BP Pulse Ox 02/25/17 14:52 97.6 F 97 16 137/86 98 02/25/17 11: 97.9 F 94 16 142/81 99 02/25/17 06:41 98.3 F 91 16 136/79 99 02/24/17 23:57 98.0 F 85 18 133/73 99 02/24/17 20:37 98.2 F 90 19 141/87 98 Intake and Output 02/25/17 02/25/17 02/25/17 07:59 15:59 23:59 Intake Total 540 / 540 1100 / 1100 Balance 540 / 540 1100 / 1100 Intake: IV Fluids 300 / 300 300 / 300 Zosyn 3.375 GM In Dextrose 5% ( 50 / 50 50 / 50 ADD-[place]) 50 ML @ 12.5 mls/ hr IVPB Q8HR [facility] Rx#:[id number] Vancocin 1,500 MG In Dextrose 5 250 / 250 250 / 250 % 250 ML @ 166.67 mls/hr IVPB Q12H [facility] Rx#:[id number] Oral 240 / 240 800 / 800 Other: # Voids 1 Weight 78.3 kg Blood Glucose* 238 109 117 Patient Weight 02/25/17 23:59 Weight 78.3 kg - Exam Exam: Podiatry General Exam: General appearance: alert awake oriented X 3. Calm and pleasant, no acute distress.. Vascular: Pedal pulses +1/4 DP/PT , No evidence of cyanosis, pallor or rubor, Edema graded at 1+/4, Skin Temperature warm, No calf pain with manual compression. capillary refill time is immediate to digits. Neurologic: Sensation diminished to right foot. . Postop Exam: S/P Sutures intact to incision line, no signs of dehiscence. No open area, no drainage, no odor, no erythema, no streaking. Minimal edema with dried blood to the incision line. - Lab Result Diagrams: 02/25/17 05:19 02/25/17 05:19 Labs: Abnormal lab results RBC 4.11 M/mcL (4.19-5.50) L 02/25/17 05:19 Hgb 11.6 g/dL (12.9-16.9) L 02/25/17 05:19 Hct 35.4 % (37.5-50.1) L 02/25/17 05:19 Reactive Lymphocytes Present (Not Present) A 02/21/17 06:09 ESR 85 mm/hr (0-10) H 02/21/17 06:09 Glucose 270 mg/dL (70-99) H 02/25/17 05:19 POC Glucose 270 (58-89) H 02/24/17 20:08 Hemoglobin A1c 9.5 % (-5.6) H 02/20/17 16:39 C-Reactive Protein 8 mg/L (Less than 5) H 02/21/17 06:09 Microbiology, Last 48 Hours 02/22/17 17:41 Surgical Biopsy Culture - Preliminary Right Foot Enterococcus species Strep agalactiae - (Group B) 02/21/17 12:42 Wound Culture - Final Right Great Toe Enterococcus species 02/21/17 12:42 Gram Stain - Final Right Great Toe Consult Discharge Plan - Plan Referrals: Pamela Bruce, JIM [Advanced Practice Nurse] - 03/11/17 9:00 am Chidi Woody DO [Primary Care Provider] - Prescriptions: Crutch 1 each MC DAILY #1 each Vancomycin [Vancocin] 1,500 mg IV Q12H 42 Days vial
--- NOTE | 2017-02-25 18:19 | Discharge Summary ---
Date of Encounter: 02/25/17 Time of Encounter: 18:15 - Discharge Diagnosis (1) Osteomyelitis Priority: Primary Status: Acute Qualifiers: Osteomyelitis type: subacute Osteomyelitis location: foot Laterality: right Qualified Code(s): M86.271 - Subacute osteomyelitis, right ankle and foot (2) Diabetic ulcer of toe Priority: Secondary Status: Resolved Qualifiers: Diabetes mellitus type: other specified (including EUNICE) Laterality: right Non-pressure ulcer stage: unspecified non-pressure ulcer stage Qualified Code(s): E13.621 - Other specified diabetes mellitus with foot ulcer; L97.519 - Non-pressure chronic ulcer of other part of right foot with unspecified severity ; L97.519 - Non-pressure chronic ulcer of other part of right foot with unspecified severity; L97.519 - Non-pressure chronic ulcer of other part of right foot with unspecified severity; L97.519 - Non-pressure chronic ulcer of other part of right foot with unspecified severity (3) Diabetes mellitus Priority: Secondary Status: Acute Qualifiers: Diabetes mellitus type: type 2 Diabetes mellitus complication status: with skin complications Diabetes mellitus complication detail: with foot ulcer Diabetes mellitus terminal gauger insulin use: with terminal gauger use Qualified Code(s) : E11.621 - Type 2 diabetes mellitus with foot ulcer; L97.509 - Non-pressure chronic ulcer of other part of unspecified foot with unspecified severity; L97.509 - Non-pressure chronic ulcer of other part of unspecified foot with unspecified severity; L97.509 - Non-pressure chronic ulcer of other part of unspecified foot with unspecified severity; L97.509 - Non-pressure chronic ulcer of other part of unspecified foot with unspecified severity; Z79.4 - watermelon harvesting supervisor (current) use of insulin; Z79.4 - watermelon harvesting supervisor (current) use of insulin; Z79.4 - watermelon harvesting supervisor (current) use of insulin; Z79.4 - [facility] (current) use of insulin (4) Tobacco abuse Priority: Secondary Status: Acute (5) Hypertension Priority: Secondary Status: Chronic Qualifiers: Hypertension type: essential hypertension Qualified Code(s): I10 - Essential (primary) hypertension - Discharge Medications Prescriptions: Crutch 1 each MC DAILY #1 each Insulin LISPRO [HumaLOG] 5 units SQ TIDWM #2 vial Nicotine Patch [Nicoderm] 14 mg TD DAILY #30 patch.td24 Vancomycin [Vancocin] 1,500 mg IV Q12H 42 Days vial Home Medications: Insulin DETEMIR [Levemir] 65 unit SQ HS 01/21/15 [History] Pregabalin [Lyrica] 200 mg PO BID 01/21/15 [History] Atorvastatin Calcium [Lipitor] 20 mg PO DAILY 12/27/16 [History] Liraglutide [Victoza 3-Scott] 1.8 mg SQ QAM 12/27/16 [History] Lisinopril [Zestril] 10 mg PO DAILY 12/27/16 [History] SitaGLIPtin [Januvia] 100 mg PO DAILY 02/20/17 [History] Crutch 1 each MC DAILY #1 each 02/25/17 [Rx] Insulin LISPRO [HumaLOG] 5 units SQ TIDWM #2 vial 02/25/17 [Rx] Nicotine Patch [Nicoderm] 14 mg TD DAILY #30 patch.td24 02/25/17 [Rx] Vancomycin [Vancocin] 1,500 mg IV Q12H 42 Days vial 02/25/17 [Rx] Allergies/Adverse Reactions: 3 Allergy/AdvReac Type Severity Reaction Status Date / Time duloxetine [From Cymbalta] Allergy Blister Verified 01/21/15 22:58 gabapentin Allergy Blister Verified 02/20/17 15:05 sulfamethoxazole Allergy Blister Verified 02/20/17 15:05 [From Bactrim] trimethoprim [From Bactrim] Allergy Blister Verified 02/20/17 15:05 Date of admission: 02/20/17 20:30 Primary care physician: Chidi Woody DO Consults: 02/20/17 20:33 Consult to Podiatry [CONS] Routine Consulting Provider: [facility] Reason for Consult: Osteomyelitis Time Notified: 20:34 Call Completed: No 02/21/17 13:01 Consult to Infectious Diseases [CONS] Routine Consulting Provider: Infectious Disease [facility] Reason for Consult: ulcer of right great toe, chronic 3 months, failed outpatient oral antibiotic therapy, poss osteo per xray. Time Notified: 13:00 Call Completed: Yes 02/22/17 18:21 Consult to Physical Therapy [CONS] Routine Comment: Evaluate, develop and implement POC Reason for Consult: s/p right hallux amputation, heel weight bearing in surgical shoe 02/25/17 11:47 Consult to Invasive Line Access Team [CONS] Routine Reason for Consult: Picc Line Insertion Line Type: PICC PICC line indications: [facility] Med/Antibiotic Time Notified: 11:48 Call Completed: Yes Discharging clinician: Poncho Ahumada - Patient Status Disposition: Home Health Service Condition: Good Functional capacity at discharge: independent ambulation Overall status at discharge: patient is progressing back to baseline - Discharge Instructions Instructions: Vancomycin (Injection), Osteomyelitis (DC) Follow Up With: Pamela Bruce ANALYSIS ANALYST [Advanced Practice Nurse] - 03/11/17 9:00 am Chidi Woody DO [Primary Care Provider] - - Diet and Activity Activity: as per physical therapy Diet: diabetic diet Hospital course: Mr. Menon is a 46 year old male with history of diabetes neuropathy, hypertension and tobacco abuse presents after stock controller had him come in after concerns of increased foot redness and swelling. Was advised to go to ER for evaluation and admission. X-ray of the right foot did reveal increased erosive changes of the first DIP joint most compatible with progressive osteomyelitis. Blood cultures were obtained by Dr. Harden and was notified and consulted. Return to the patient for the past 3 months he has had chronic nonhealing diabetic ulcer to his right foot. He has been followed by dietary. Culture grew group B strep Citrobacter and Morganella. He has been receiving outpatient antibiotics, clindamycin and Levaquin. He was hemodynamically stable on presentation. Blood cultures were obtained, Patient was started on vancomycin and Zosyn. Podiatry was consulted. An MRI with and without contrast was performed and confirmed osteomyelitis in the first proximal and distal phalanges. She just disease was consulted as well. Patient underwent amputation of the right great toe on 02/22. Already procedure well and had no complications. Zosyn was discontinued, vancomycin was continued and a PICC line was placed for home-going IV infusion. Patient was discharged home in stable condition. He is to continue vancomycin for likely 6 weeks duration. He will need weekly CBC, BMP, ESR, CRP, Vanco trough every Saturday for the duration of treatment. He has follow-up scheduled with infectious disease on at 9 AM. - Time Spent with Patient Total time spent providing and/or coordinating discharge services: - Constitutional Vitals: Temp Pulse Resp BP Pulse Ox 97.6 F 97 16 137/86 98 02/25/17 14:52 02/25/17 14:52 02/25/17 14:52 02/25/17 14:52 02/25/17 14:52 General appearance: Present: A&O X 3, answers questions appropriately Exam: Gen: NAD CVS: RRR Lungs: CTAB Abd: NT/ND Ext: right foot wrapped, trace edema at ankles.
--- NOTE | 2017-02-25 18:43 | Physician Discharge Referral ---
Home Health/Hosp Referral Info Transfer to: Home Health Provider in Charge Post Discharge: PCP - Diagnosis (1) Osteomyelitis Priority: Primary Status: Acute (2) Diabetic ulcer of toe Priority: Secondary Status: Resolved (3) Diabetes mellitus Priority: Secondary Status: Acute (4) Tobacco abuse Priority: Secondary Status: Acute (5) Hypertension Priority: Secondary Status: Chronic - Respiratory Orders Smoking Cessation: Smoking cessation has been advised. For more information, call the [place] Tobacco Quit Line at 2-784-ARKP-NOW. - Services Needed Following services are medically necessary services: Home Infusion - Transfer Medications Prescriptions: Crutch 1 each MC DAILY #1 each Insulin LISPRO [HumaLOG] 5 units SQ TIDWM #2 vial Nicotine Patch [Nicoderm] 14 mg TD DAILY #30 patch.td24 Vancomycin [Vancocin] 1,500 mg IV Q12H 42 Days vial Home Medications: Insulin DETEMIR [Levemir] 65 unit SQ HS 01/21/15 [History] Pregabalin [Lyrica] 200 mg PO BID 01/21/15 [History] Atorvastatin Calcium [Lipitor] 20 mg PO DAILY 12/27/16 [History] Liraglutide [Victoza 3-Scott] 1.8 mg SQ QAM 12/27/16 [History] Lisinopril [Zestril] 10 mg PO DAILY 12/27/16 [History] SitaGLIPtin [Januvia] 100 mg PO DAILY 02/20/17 [History] Crutch 1 each MC DAILY #1 each 02/25/17 [Rx] Insulin LISPRO [HumaLOG] 5 units SQ TIDWM #2 vial 02/25/17 [Rx] Nicotine Patch [Nicoderm] 14 mg TD DAILY #30 patch.td24 02/25/17 [Rx] Vancomycin [Vancocin] 1,500 mg IV Q12H 42 Days vial 02/25/17 [Rx] Allergies/Adverse Reactions: 3 Allergy/AdvReac Type Severity Reaction Status Date / Time duloxetine [From Cymbalta] Allergy Blister Verified 01/21/15 22:58 gabapentin Allergy Blister Verified 02/20/17 15:05 sulfamethoxazole Allergy Blister Verified 02/20/17 15:05 [From Bactrim] trimethoprim [From Bactrim] Allergy Blister Verified 02/20/17 15:05 Certification: Further, I certify that my clinical findings support that this patient is homebound (i.e. absences from home require considerable and taxing effort and are for medical reasons or roman catholic services or infrequently or short duration when for other reasons) because: Homebound Reason: Patient requires assistance of a person or device to safely leave home, Post-surgery restriction and or conditions limit ability to leave home Attestation: My signature below is to certify that this patient is under my care and that I, or nurse practitioner, or a physician's assistant pastry chef working with me, has a face-to -face encounter with this patient.
[2017-02-25 18:57] VITALS: BP 118/71
[2017-02-25] MEDS ORDERED: Vancomycin 1,000 MG in D5% in Water 250 ML IVPB ONE (19:00)
[2017-02-25] MEDS: Insulin DETEMIR 100 UNIT/ML X5UNITS SQ SCH (20:37)
[2017-02-25] MEDS ORDERED: Aminoglycoside Consult 1 EACH MC ONE (20:59)
== END 2017-02-25 21:00 | disposition home health service (06) | DRG 854 ==
LOC: EMEROO 14:57 → 3NENU 14:57
PROVIDERS: ADMIT Internal Medicine; ATTEND Student in an Organized Health Care Education/Training Program

== ENCOUNTER 2018-10-09 15:03 | Observation (INO) ==
--- NOTE | 2018-10-09 16:05 | Emergency Department Note ---
Disposition Clinical Impression: Acute kidney injury, History of CVA (cerebrovascular accident) Syncope Qualifiers: Syncope type: unspecified Qualified Code(s): R55 - Syncope and collapse Disposition: Admitted As Inpatient Condition: Good Time of Disposition: 19:00 General Adult HPI - General Chief complaint: ED Fall Stated complaint: Hx CVA Syncope Head Injury Time Seen by Provider: 10/09/18 15:13 Source: patient, family () Mode of arrival: ambulatory Limitations: no limitations Nursing Notes Reviewed: Yes Vital Signs Reviewed: Yes - History of Present Illness HPI Narrative: 48-year-old male history of hypertension, diabetes, recent CVA with right sided weakness presents to the emergency department with head injury and syncopal episode. States prior to arrival he was sitting in his kitchen at the bar eating some food when he began having a choking spell. He got up turnaround as he felt like he needed to vomit. He had his hands on the counter to hold himself up but then suddenly appear to fall forward and strike the front of his head on the counter. He proceeded stand up and actually fell backwards striking the back of his head. He reportedly passed out for approximately 30 seconds. Denies any other prodromal symptoms prior such as chest pain or headache. Denies any lightheadedness or narrowing of his vision. He takes aspirin does not take any other anticoagulants. He feels much better at this time. Family member concerned as he recently had the stroke and wanted to be further evaluated. No history of cardiac ischemic disease. Pain Scale: 0 - Related Data Home Medications Medication Instructions Recorded Confirmed Omeprazole [PriLOSEC] 40 mg PO QAM 04/21/18 10/09/18 Aspirin [Lo-Dose Aspirin EC] 81 mg PO QAM 10/09/18 10/09/18 Atorvastatin Calcium [Lipitor] 80 mg PO QAM 10/09/18 10/09/18 Dulaglutide [Trulicity] 1.5 mg SQ MO 10/09/18 10/09/18 Furosemide [Lasix] 20 mg PO QAM 10/09/18 10/09/18 Insulin ASPART [Novolog Flexpen] 6 units SQ TID 10/09/18 10/09/18 Insulin DETEMIR [Levemir Flextouch] 30 units PO QAM 10/09/18 10/09/18 Insulin DETEMIR [Levemir] 35 unit SQ HS 10/09/18 10/09/18 Lisinopril [Zestril] 40 mg PO QAM 10/09/18 10/09/18 Metoprolol [Lopressor] 100 mg PO BID 10/09/18 10/09/18 Olmesartan Medoxomil [Benicar] 40 mg PO QAM 10/09/18 10/09/18 amLODIPine [Norvasc] 5 mg PO QAM 10/09/18 10/09/18 Allergies Allergy/AdvReac Type Severity Reaction Status Date / Time duloxetine [From Cymbalta] Allergy Blister Verified 01/21/15 22:58 gabapentin Allergy Blister Verified 02/20/17 15:05 sulfamethoxazole Allergy Blister Verified 02/20/17 15:05 [From Bactrim] trimethoprim [From Bactrim] Allergy Blister Verified 02/20/17 15:05 All systems ED: reviewed and negative except as stated. Review of Systems: As Per HPI Constitutional: Denies: fever, chills, weakness ENT ED: Denies: congestion Cardiovascular: Reports: syncope. Denies: chest pain, palpitations, dyspnea on exertion Respiratory: Denies: cough, dyspnea Gastrointestinal: Denies: abdominal pain, nausea, vomiting, diarrhea Musculoskeletal: Denies: back pain, neck pain Integumentary: Denies: rash, abrasion Neurological: Reports: weakness (Baseline right side). Denies: headache, numbness Endocrine: Denies: fatigue Past Medical History - Past Medical History Attestation: Yes The following information was validated with the patient. Source: patient Medical history: Reports: CVA, diabetes, hyperlipidemia, hypertension, other Surgical history: Reports: other (Toe amputations) Psychiatric history: Reports: no psych history - Social History Smoking Status: Former smoker Smokeless Tobacco Status: No Alcohol use: Reports: none Drug use: Reports: none Physical Exam - General Limitations: no limitations General appearance: alert, in no apparent distress - Head Head exam: normocephalic - Expanded Head Exam Head exam physicial: Present: abrasion (Left forehead). Absent: contusion, hematoma, raccoon eyes, Boswell's sign - Eye Eye exam: Present: normal appearance, PERRL, EOMI. Absent: nystagmus - ENT ENT exam: normal exam, normal oropharynx, mucous membranes moist - Neck Neck exam: Present: normal inspection, full ROM, trachea midline - Chest Chest inspection: Present: normal inspection, symmetric chest wall rise. Absent: tenderness - Respiratory Respiratory exam: Present: normal lung sounds bilaterally. Absent: respiratory distress, wheezes - Cardiovascular Cardiovascular exam: Present: regular rate, normal rhythm, normal heart sounds, other (No murmur on Valsalva). Absent: systolic murmur - Expanded Cardiovascular Exam Peripheral pulses: 2+: radial (R), radial (L) - Abdominal Exam Abdominal exam: Present: soft, Non-Tender, normal bowel sounds. Absent: tenderness, distention, guarding, rebound, rigidity - Extremities Exam Extremities exam: Present: normal inspection, full ROM. Absent: tenderness, pedal edema - Back Exam Back exam: Present: normal inspection, full ROM. Absent: tenderness - Neurological Exam Neurological exam: Present: alert, oriented X3, CN II-XII intact - Expanded Neurological Exam Patient oriented to: Present: person, place, time Speech: Present: fluid speech Cranial nerves: EOM function (II, III, IV, ): Normal, facial sensation (V): Normal, facial palsy (VII): Normal, gag reflex (IX): Normal, spinal accessory function (XI): Normal, tongue deviation (XII): Normal Cerebellar function: finger to nose: Abnormal Right (Slight dysmetria on right arm), heel to rosas: Normal Motor strength - LUE: 5/5 Motor strength - RUE: 4/5 (Weakness to resistance to upper extremity) Motor strength - LLE: 5/5 Motor strength - RLE: 5/5 Upper motor neuron exam: tiffany neglect: Absent bilaterally, pronator drift: Absent bilaterally Sensory exam upper extremity: light touch: Normal Sensory exam lower extremity: light touch: Normal Coma Scale Eye Opening: Spontaneous Coma Scale Motor Response: Obeys Commands Coma Scale Verbal Response: Oriented Coma Scale Total: 15 - Psychiatric Psychiatric exam: Present: normal affect, normal mood - Skin Skin exam: Present: warm, dry, intact, normal color. Absent: rash, cyanosis, diaphoresis Course Course Narrative: Patient presents with concern for possible syncopal episode. He was standing in reportedly had a coughing spell and had a syncopal episode where he struck the front of his head. There is no other evidence of trauma to his head otherwise he feels normal. He denies any other prodromal symptoms other than the coughing spell. Currently his neurologic exam is his baseline with right upper extremity weakness. His heart's regular rate and rhythm. No murmurs were auscultated at rest or with Valsalva. EKG did not reveal any ischemic findings. Syncope workup initiated including a CT head given his recent history of stroke. Physician pending workup - Reevaluation(s) Reevaluation #1: Review of his labs shows an acute kidney injury. His creatinine is nearly do ubled to 2. He has baseline chronic anemia. His troponin is less than 0.03. His CT of the head shows the prior left-sided infarct without any acute findings. It is possible is syncopal episode is vasovagal blood difficult to determine given his underlying acute kidney injury. Patient would benefit further evaluation and treatment. Patient is agreeable to this plan for admission. Impression is syncope and acute kidney injury - Consultations Consultation #1: Spoke with on-call hospitalist archana Kowalski to admit for syncope and COLE. No further orders at this time Vital Signs Temperature 98.0 F 10/09/18 15:11 Pulse Rate 94 10/09/18 15:11 Respiratory Rate 18 10/09/18 15:11 Blood Pressure 172/98 10/09/18 15:11 O2 Sat by Pulse Oximetry 100 10/09/18 15:11 Temperature 98.5 F 10/10/18 00:05 Pulse Rate 97 10/10/18 00:05 Respiratory Rate 17 10/10/18 00:05 Blood Pressure 167/93 10/10/18 00:05 O2 Sat by Pulse Oximetry 98 10/10/18 00:05 Oxygen Delivery Oxygen Delivery Room Air Medical Decision Making - MDM Narrative Medical decision making narrative: Patient was discussed with my attending physician who agrees with ED management and final disposition. They independently evaluated the patient. Please refer to their attestation to this encounter for additional information. This note was generated by [employer] voice recognition software and as a result grammatical or spelling errors may occur using this program. - Medical Records Medical records reviewed: Yes I reviewed the patient's medical records. - Lab Data Lab results reviewed: Yes I reviewed the patient's lab results. Result diagrams: 10/09/18 16:02 10/09/18 16:02 Lab Results 10/09/18 10/09/18 10/09/18 Range/Units 16:02 16:02 16:02 WBC 7.9 (4.3-11.1) K/mcL RBC 3.94 L (4.19-5.50) M/mcL Hgb 11.5 L (12.9-16.9) g/dL Hct 34.1 L (37.5-50.1) % MCV 86.5 (83.0-100.0) fL MCH 29.2 (28.0-33.3) pg MCHC 33.7 (31.6-35.5) g/dL RDW 13.2 (11.5-14.5) % Plt Count 167 (140-400) K/mcL MPV 11.7 (9.4-12.4) fL Immature Gran % 0.4 (0-4) % Seg Neutrophils % 72.1 % Lymphocytes % 15.0 % Monocytes % 8.1 % Eosinophils % 3.9 % Basophils % 0.5 % Neutrophils # 5.7 (1.6-8.9) K/mcL Lymphocytes # 1.2 (0.6-4.6) K/mcL Monocytes # 0.6 (0.0-1.3) K/mcL Eosinophils # 0.3 (0.0-0.6) K/mcL Basophils # 0.0 (0.0-0.2) K/mcL Sodium 139 (136-145) mEq/L Potassium 5.0 (3.5-5.1) mEq/L Chloride 107 (98-107) mEq/L Carbon Dioxide 25 (23-29) mEq/L BUN 41 H (6-20) mg/dL Creatinine 2.03 H (0.70-1.30) mg/dL Est GFR ( Amer) 42 L (> 60) Est GFR (Non-Af Amer) 35 L (> 60) BUN/Creatinine Ratio 20 (6-26) Glucose 93 (70-105) mg/dL Est Mean Plasma Glucose 212 mg/dl Hemoglobin A1c 9.0 H ( - 5.6) % Calculated Osmolality 298 (280-300) Calcium 9.2 (8.6-10.3) mg/dL Troponin I < 0.03 (< 0.04) ng/mL - Radiology Data Radiology results reviewed: Yes I reviewed the patient's radiology results. Chest X-Ray 10/09/18 15:33 IMPRESSION: No acute abnormality. D/ / Armond Haddad MD / Armond Haddad MD Interpreting Provider: Armond Haddad MD Head CT 10/09/18 15:34 IMPRESSION: No acute intracranial abnormality. Chronic appearing hypodensity in the left periventricular region likely remote area of infarction. D/ / Julius Allen / Julius Allen Interpreting Provider: Julius Allen - EKG Data EKG #1 EKG attestation: Yes I reviewed and interpreted this EKG. EKG results narrative: EKG performed 1524 normal sinus rhythm 91 beats per minute, normal axis, good R wave progression, no ST elevation or depression, no Brugada pattern, no delta waves, intervals appear within normal limits. Compared to prior EKG performed 06/09/2017 was similar consistent findings. No acute ischemic changes. Attestation Statement - Attestation Attestation: I, Asa Fall, examined this patient and my medical decision-making was reviewed with the [employer]TER/PA/Advanced Practice Nurse/Resident Physician. I agree with the documented findings, disposition and treatment plan as described except to the extent set forth below. 48-year-old male presents emergency Department with concerns of syncopal event. Patient has a history of CVA 6 months ago that left him with residual right upper extremity and right lower extremity weakness. He states he was mowing the lawn, came inside had a drink water when he started to cough. He was standing holding the counter when he syncopized hitting his head on the counter. He denies chest pain prior to the fall denies palpitations. Denies similar circumstances in the past. Significant other was present in the room when this occurred, she states he felt to the ground and was unconscious for about 30 seconds. She states he was not incontinent of urine or stool, he did not have a postictal period. He feels back to his baseline in the emergency department. Laboratory evaluation revealed acute kidney injury. Patient was updated regarding imaging results. I reviewed the EKG with the resident and agree with the interpretation. Patient will be admitted to the hospitalist for further care and evaluation.
[2018-10-09 16:52] LABS: Basophils % 0.5 %; Eosinophils # 0.3 K/mcL (0.0-0.6); Eosinophils % 3.9 %; Hematocrit 34.1 % (37.5-50.1); Hemoglobin 11.5 g/dL (12.9-16.9); Immature Granulocytes % 0.4 % (0-4); Lymphocytes # 1.2 K/mcL (0.6-4.6); Mean Corpuscular HGB Conc 33.7 g/dL (31.6-35.5); Mean Corpuscular Hemoglobin 29.2 pg (28.0-33.3); Mean Corpuscular Volume 86.5 fL (83.0-100.0); Mean Platelet Volume 11.7 fL (9.4-12.4); Monocytes # 0.6 K/mcL (0.0-1.3); Monocytes % 8.1 %; Neutrophils # 5.7 K/mcL (1.6-8.9); Platelet Count 167 K/mcL (140-400); Red Blood Count 3.94 M/mcL (4.19-5.50); Red Cell Distribution Width 13.2 % (11.5-14.5); Segmented Neutrophils % 72.1 %; White Blood Count 7.9 K/mcL (4.3-11.1)
[2018-10-09 17:11] LABS: BUN/Creatinine Ratio 20 (6-26); Blood Urea Nitrogen 41 mg/dL (6-20); Calcium 9.2 mg/dL (8.6-10.3); Carbon Dioxide 25 mEq/L (23-29); Chloride 107 mEq/L (98-107); Glucose 93 mg/dL (70-105); Osmolality,Calculated 298 (280-300); Sodium 139 mEq/L (136-145); eGFR For African Americans 42 (> 60); eGFR For Non-African Americans 35 (> 60)
[2018-10-09 17:12] LABS: Troponin I < 0.03 ng/mL (< 0.04)
[2018-10-09] MEDS ORDERED: 0.9 % Sodium Chloride 1,000 ML IVC ONE (17:28)
[2018-10-09] MEDS ORDERED: Naloxone 0.4 MG/ML INJ IVP PRN (19:01)
--- NOTE | 2018-10-09 19:01 | Internal Med History&Physical ---
<Coleman Talbot - Last Filed: 10/09/18 20:09> Date of Encounter: 10/09/18 Time of Encounter: 19:01 Internal Medicine - H&P: HPI Chief complaint: Syncope, COLE Admitted From: Home Plans for Post Hospital Care: Home History of present illness: Mr. Menon is a 48 year old male with history of CVA in April 2018 (currently only on aspirin), diabetes, hypertension, hyperlipidemia, GERD who presents today from home to the emergency department after syncopal episode. Patient was accompanied by . They note the patient was riding on his lawnmower for about half an hour, came inside, and noted he was nauseous. He asked his to check his blood pressure and blood sugar. BP = 130/82, and blood sugar = 203. Patient's did feed patient, and then patient had coughing spell after eating and drinking water. Suddenly patient slumped forward and hit his forehead, and back of his head and slumped to the ground. Per patient's , patient was unconscious for about 30 seconds before he regained consciousness. Patient was diaphoretic, nauseous prior to syncopal episode. Patient did not have seizure-like movements, tongue biting, bowel or bladder incontinence. He recovered quickly after 30 seconds. There was no postictal state. Patient states that he does not remember passing out or hitting his head. After recovery, patient's took his blood pressure and sugar again. Blood pres sure at this time = 187/107. Blood Sugar = 183. Patient denied having any headache, blurry vision, chest pain, palpitations, abdominal pain, recent illness, weakness, fatigue, lethargy. After this episode, patient and decided he needed to come to the emergency room. In the ED, patient's initial vitals were hemodynamically stable. Blood pressure was elevated = 172/98. However patient was otherwise feeling fine. Oxygen saturation appropriate on room air. Lab work was done, and was only notable for BUN/Cr = 41/2.03. GFR = 35. Chest x-ray was negative. Head CT showed no acute intracranial abnormality. It did show a chronic-appearing hypodensity in the left periventricular region likely remote area of infarction. Troponin was negative 1. EKG was negative for any ischemic changes. Of note, patient did have CVA in April 2018. He noted right-sided deficits in his upper and lower extremities, and presented to the ER after 24 hours from presentation. Patient was evaluated at [facility] in [place]. Patient is currently on aspirin and statin after CVA. He has slight residual deficits in his right upper and lower extremities. Patient will be admitted for further workup of syncopal episode and acute kidney injury. Past Med Surg Social Fam HX - Past Medical History Attestation: Yes The following information was validated with the patient. Source: patient, old records reviewed, obtained from family Medical history: CVA, diabetes, hyperlipidemia, hypertension, other Additional medical history: neurothopy Psychiatric history: no psych history - Past Surgical History Surgical History: other (Toe amputations) Additional surgical history: ankle/foot, great toe amputated - Social History Smoking Status: Former smoker Smokeless Tobacco Status: No Alcohol use: none Drug use: none - Family History Father Living Status: Still Living Hx Family Neuromuscular Disorders: Yes (cva) Mother Living Status: Still Living Hx Family Endocrine Disorder: Yes (DM) Internal Medicine - H&P: Meds Omeprazole [PriLOSEC] 40 mg PO QAM 04/21/18 [History] Aspirin [Lo-Dose Aspirin EC] 81 mg PO QAM 10/09/18 [History] Atorvastatin Calcium [Lipitor] 80 mg PO QAM 10/09/18 [History] Dulaglutide [Trulicity] 1.5 mg SQ MO 10/09/18 [History] Furosemide [Lasix] 20 mg PO QAM 10/09/18 [History] Insulin ASPART [Novolog Flexpen] 6 units SQ TID 10/09/18 [History] Insulin DETEMIR [Levemir Flextouch] 30 units PO QAM 10/09/18 [History] Insulin DETEMIR [Levemir] 35 unit SQ HS 10/09/18 [History] Lisinopril [Zestril] 40 mg PO QAM 10/09/18 [History] Metoprolol [Lopressor] 100 mg PO BID 10/09/18 [History] Olmesartan Medoxomil [Benicar] 40 mg PO QAM 10/09/18 [History] amLODIPine [Norvasc] 5 mg PO QAM 10/09/18 [History] Allergy/AdvReac Type Severity Reaction Status Date / Time [facility] Allergy Blister Verified 01/21/15 22:58 gabapentin Allergy Blister Verified 02/20/17 15:05 sulfamethoxazole Allergy Blister Verified 02/20/17 15:05 [From Bactrim] trimethoprim [From Bactrim] Allergy Blister Verified 02/20/17 15:05 All Systems PM: A 10-system review of systems was performed and is negative for pertinent findings except as documented above in the HPI. - Constitutional Constitutional: fatigue, falls, no lethargy, no malaise, no weakness - EENT Eyes: no blurry vision, no change in vision Ears: no decreased hearing Nose, mouth and throat: no facial pain, no nasal congestion, no sore throat - Cardiovascular Cardiovascular ROS IM: diaphoresis, syncope, no chest pain, no dyspnea, no dyspnea on exertion, no edema, no irregular heart rhythm, no lightheadedness, no palpitations - Respiratory Respiratory: no cough, no dyspnea, no dyspnea on exertion - Gastrointestinal Gastrointestinal: nausea, no abdominal pain, no constipation, no diarrhea, no vomiting - Genitourinary Genitourinary ROS male: no dysuria - Musculoskeletal Musculoskeletal ROS IM: no arthralgias, no back pain, no muscle cramps, no muscle weakness, no neck pain, no numbness, no tingling - Integumentary Integumentary IM: no rash - Neurological Neurological ROS: no behavioral changes, no confusion, no dizziness, no focal weakness, no frequent falls, no headache(s), no paresthesias, no tingling, no weakness - Psychiatric Psychiatric: no anxiety, no confusion, no memory loss - Endocrine Endocrine IM: no fatigue, no flushing - Constitutional Vitals: Temp Pulse Resp BP Pulse Ox 98.0 F 92 16 161/98 99 10/09/18 15:11 10/09/18 15:36 10/09/18 15:36 10/09/18 15:36 10/09/18 15:36 General appearance: Present: cooperative, A&O X 3, pleasant, no acute distress, answers questions appropriately Exam: This is a very pleasant 48-year-old male who is resting comfortably in bed currently in no acute distress. He is accompanied by his . - Head Head exam: Present: normal inspection, normocephalic Additional comments: There is a noted healing small laceration at the superior aspect of the forehead. - Eye Eye exam: Present: EOMI, normal appearance, PERRL, conjuntiva pink Pupils: Present: PERRL - ENT ENT exam: Present: mucous membranes moist, normal oropharynx - Neck Neck exam general surgery: Present: full ROM, supple. Absent: lymphadenopathy, tenderness - Respiratory Respiratory exam: Present: CTAB. Absent: decreased breath sounds, respiratory d istress, rhonchi, stridor, wheezes, tachypnea - Cardiovascular Cardiovascular exam: Present: RRR, +S1, +S2. Absent: tachycardia - GI/Abdominal GI/Abdominal exam: Present: normal bowel sounds, soft, no peritoneal signs. A bsent: guarding, rebound, rigid, tenderness - Extremities Exam Extremities exam: Present: full ROM, normal capillary refill, normal inspection, warm, radial pulses palpable and symmetrical. Absent: calf tenderness, pedal edema - Neurological Exam Neurological exam: Present: alert, CN II-XII intact, oriented X3. Absent: facial droop, speech deficit - Expanded Neurological Exam Patient oriented to: Present: person, place, time Speech: Present: fluid speech Cranial Nerves: EOM's intact PM: Normal, tongue deviation PM: Normal Sensory exam: lower extremity light touch: Normal, upper extremity light touch: Normal Neuro motor strength exam: LUE: 5, RUE: 4, LLE: 5, RLE: 5 Coma Scale Eye Opening: Spontaneous Coma Scale Motor Response: Obeys Commands Coma Scale Verbal Response: Oriented Coma Scale Total: 15 - Psychiatric Psychiatric exam: Present: normal affect, normal mood - Skin Skin exam: Present: warm. Absent: rash Internal Med - H&P Results - Labs CBC & Chem 7: 10/09/18 16:02 10/09/18 16:02 Labs: Short CBC 10/09/18 Range/Units 16:02 WBC 7.9 (4.3-11.1) K/mcL Hgb 11.5 L (12.9-16.9) g/dL Hct 34.1 L (37.5-50.1) % Plt Count 167 (140-400) K/mcL Neutrophils # 5.7 (1.6-8.9) K/mcL BMP 10/09/18 16:02 Sodium 139 Potassium 5.0 Chloride 107 Carbon Dioxide 25 BUN 41 H Creatinine 2.03 H Glucose 93 Calcium 9.2 Cardiac Enzymes 10/09/18 Range/Units 16:02 Troponin I < 0.03 (< 0.04) ng/mL - EKG Data -: EKG Interpreted by Myself EKG shows normal: sinus rhythm, axis, intervals, QRS complexes, ST-T waves Rate: normal - EKG Data Prior EKG available for review: yes When compared to previous EKG: there is no significant change Interpretation IM: normal EKG EKG comments: HR = 91, [place] = 186, QRS = 99, QTC = 448. Normalslightly left axis deviation. Sinus rhythm. No acute ST changes. Normal intervals. Similar to previous EKGs. 10/09/18 19:32 - Impressions ITS Impressions Chest X-Ray 10/09/18 15:33 IMPRESSION: No acute abnormality. D/ / Armond Haddad MD / Armond Haddad MD Interpreting Provider: Armond Haddad MD Head CT 10/09/18 15:34 IMPRESSION: No acute intracranial abnormality. Chronic appearing hypodensity in the left periventricular region likely remote area of infarction. D/ / Julius Allen / Julius Allen Interpreting Provider: Julius Allen - Assessment and Plan (1) Syncope Current Visit: Yes Status: Acute Assessment and plan: Mr. Menon is a 48 year old male with history of CVA in April 2018 (currently only on aspirin), diabetes, hypertension, hyperlipidemia, GERD who presents today from home to the emergency department after syncopal episode. - Per patient's , patient was unconscious for about 30 seconds before he regained consciousness - Associated with diaphoresis, nausea prior to syncopal episode. - Patient did not have seizure-like movements, tongue biting, bowel or bladder incontinence. There was no postictal state. - Vital stable in the ED. Hypertensive = 172/98 - Elevated BUN/Cr = 41/2.03. GFR = 35 - Chest x-ray negative - Head CT showed no acute intracranial abnormality. It did show a chronic- appearing hypodensity in the left periventricular region likely remote area of infarction. - Troponin negative 1. EKG showed no acute ischemic changes. PLAN: Patient presents with syncopal episode lasting for 30 seconds. Unlikely cardiogenic given no chest pain, shortness of breath, palpitations, and unlikely seizure given no seizure-like movements, bowel/bladder incontinence, tongue biting. Likely vasovagal syncope versus dehydration. Nonetheless we will pursue syncope workup - Continue to monitor vital signs. Monitor for altered mental status or loss of consciousness. - Cardiac telemetry and pulse oximetry - Vital signs every shift - Continue IV fluids - Echocardiogram and carotid duplex in the a.m. - Follow up orthostatic vital signs - Follow up a.m. labs. Monitor electrolytes - CODE STATUS = full code Qualifiers: Syncope type: unspecified Qualified Code(s): R55 - Syncope and collapse (2) History of CVA (cerebrovascular accident) Current Visit: Yes Status: Acute Assessment and plan: History of CVA in April 2018 - Patient does have residual right-sided deficits - Head CT showed no acute intracranial abnormality. It did show a chronic- appearing hypodensity in the left periventricular region likely remote area of infarction. - Currently managed with aspirin, statin PLAN: This is unlikely related to CVA. Head CT was negative for acute intracranial abnormality. No new focal neurologic deficits - Continue to monitor (3) Acute kidney injury Current Visit: Yes Status: Acute Assessment and plan: Patient presents with acute kidney injury. BUN/Cr = 41/2.03. GFR = 35 - Patient reports history of chronic kidney disease stage II - Status post IV fluid bolus in the ED - Patient does report mowing lawn outside, and dehydration could be component of syncopal episode PLAN: Acute kidney injury likely secondary to dehydration. However, patient does note that he is on many blood pressure medications, which may affect kidney function. He does currently take Lasix, lisinopril, olmesartan. Combination of medications could additionally be contributing to dehydration. - Continue with IV fluids - Monitor BUN/creatinine in the a.m.; should improve with IV fluids. - We will restart home blood pressure medication once reconciled. May need medication adjustments prior to discharge, given that patient is on ADRIAN inhibitor, ARB, diuretic. - Otherwise avoid nephrotoxic agents (4) Hypertension Current Visit: Yes Status: Chronic Assessment and plan: Patient was hypertensive on admission. BP = 172/98 - At home, BP = 187/107 per . states the blood pressure is consistently elevated - Managed with metoprolol, amlodipine, Lasix, lisinopril, olmesartan at home PLAN: Patient is on multiple antihypertensives, and blood pressure is still uncontrolled per . - We will restart some of home hypertension medications once reconciled - May require medication adjustment prior to discharge - Consider evaluation outpatient for secondary causes of hypertension Qualifiers: Hypertension type: unspecified Qualified Code(s): I10 - Essential (primary) hypertension (5) Hyperlipidemia Current Visit: Yes Status: Acute Assessment and plan: History of CVA in April 2018 - Currently managed with atorvastatin 80 mg daily PLAN: - Continue statin once reconciled - Follow up lipid panel Qualifiers: Hyperlipidemia type: unspecified Qualified Code(s): E78.5 - Hyperlipidemia, unspecified (6) Diabetes mellitus Current Visit: No Status: Acute Assessment and plan: History of diabetes on home insulin - Currently managed with long-acting insulin (Levemir) 30 units in the a.m., 35 units in the p.m. - Additionally managed with trulicity once weekly, and short-acting insuling prior to each meal PLAN: - Low-dose insulin sliding scale - Diabetic diet - Accu-Cheks before meals and at bedtime - Consider resumption of long-acting insulin tomorrow - Follow up A1c Qualifiers: Diabetes mellitus type: type 2 Diabetes mellitus residential insulin use: with long term care phlebotomist use Diabetes mellitus complication status: with skin complications Diabetes mellitus complication detail: with foot ulcer Q ualified Code(s): E11.621 - Type 2 diabetes mellitus with foot ulcer; L97.509 - Non-pressure chronic ulcer of other part of unspecified foot with unspecified severity; L97.509 - Non-pressure chronic ulcer of other part of unspecified foot with unspecified severity; L97.509 - Non-pressure chronic ulcer of other part of unspecified foot with unspecified severity; L97.509 - Non-pressure chronic ulcer of other part of unspecified foot with unspecified severity; Z79.4 - long term care phlebotomist (current) use of insulin; Z79.4 - [facility] (current) use of insulin; Z79.4 - [facility] (current) use of insulin; Z79.4 - long term care phlebotomist (current) use of insulin (7) GERD (gastroesophageal reflux disease) Current Visit: Yes Status: Acute Assessment and plan: History of GERD PLAN: - Continue PPI Qualifiers: Esophagitis presence: esophagitis presence not specified Qualified Code(s): K21.9 - Gastro-esophageal reflux disease without esophagitis (8) DVT prophylaxis Current Visit: Yes Status: Acute Assessment and plan: PLAN: - Heparin subcutaneous twice a day - Time Spent With Patient Total time spent is greater than 50% in coordination of care (as documented) at patient's floor/unit and/or counseling patient: 25 - 35 minutes <Katie Wagner - Last Filed: 10/10/18 06:18> Date of Encounter: 10/09/18 Internal Medicine - H&P: HPI History of present illness: Mr. Menon is a 48 year old male All Systems PM: A 10-system review of systems was performed and is negative for pertinent findings except as documented above in the HPI. - Constitutional Vitals: Temp Pulse Resp BP Pulse Ox 97.9 F 89 19 162/54 98 10/10/18 04:06 10/10/18 04:06 10/10/18 04:06 10/10/18 04:06 10/10/18 04:06 Internal Med - H&P Results - Labs CBC & Chem 7: 10/09/18 16:02 10/09/18 16:02 Labs: Short CBC 10/09/18 Range/Units 16:02 WBC 7.9 (4.3-11.1) K/mcL Hgb 11.5 L (12.9-16.9) g/dL Hct 34.1 L (37.5-50.1) % Plt Count 167 (140-400) K/mcL Neutrophils # 5.7 (1.6-8.9) K/mcL BMP 10/09/18 16:02 Sodium 139 Potassium 5.0 Chloride 107 Carbon Dioxide 25 BUN 41 H Creatinine 2.03 H Glucose 93 Calcium 9.2 Cardiac Enzymes 10/09/18 10/09/18 Range/Units 16:02 22:13 Troponin I < 0.03 < 0.03 (< 0.04) ng/mL - Impressions ITS Impressions Chest X-Ray 10/09/18 15:33 IMPRESSION: No acute abnormality. D/ / Armond Haddad MD / Armond Haddad MD Interpreting Provider: Armond Haddad MD Head CT 10/09/18 15:34 IMPRESSION: No acute intracranial abnormality. Chronic appearing hypodensity in the left periventricular region likely remote area of infarction. D/ / Julius Allen / Julius Allen Interpreting Provider: Julius Allen - Time Spent With Patient Total time spent is greater than 50% in coordination of care (as documented) at patient's floor/unit and/or counseling patient: - Attending Attestation I performed a history and physical examination of the patient and discussed his management with the resident. I reviewed the residents note and agree with the documented findings and plan of care.
[2018-10-09] MEDS ORDERED: *HR* Dextrose 50 % in Water (Syg) 50 ML SYRINGE IVP PRN (19:03)
[2018-10-09] MEDS ORDERED: Dextrose Gel 15 GM/37.5 ML TUBE PO PRN ×2 (19:03)
[2018-10-09] MEDS ORDERED: D5% in Water 1,000 ML IVC PRN (19:03)
[2018-10-09 19:49] LABS: Estimated Average Glucose 212 mg/dl
[2018-10-09] MEDS: 0.9 % Sodium Chloride 1,000 ML IVC SCH (20:40)
[2018-10-09] MEDS: Insulin LISPRO 300 UNITS/3 ML VIAL SQ SCH (22:25)
[2018-10-10] MEDS: 0.9 % Sodium Chloride 1,000 ML IVC SCH (04:50)
[2018-10-10] MEDS ORDERED: *HR* Heparin 5,000 UNIT/ML VIAL SQ SCH (06:00)
[2018-10-10] MEDS: Insulin LISPRO 300 UNITS/3 ML VIAL SQ SCH (07:39)
[2018-10-10 07:41] LABS: Basophils # 0.1 K/mcL (0.0-0.2); Basophils % 0.7 %; Calcium 8.3 mg/dL (8.6-10.3); Chol/HDL Ratio 4.2 (0-4.9); Eosinophils # 0.3 K/mcL (0.0-0.6); Eosinophils % 4.3 %; Hemoglobin 10.6 g/dL (12.9-16.9); Immature Granulocytes % 0.3 % (0-4); Lymphocytes # 1.6 K/mcL (0.6-4.6); Lymphocytes % 22.2 %; Mean Corpuscular HGB Conc 33.1 g/dL (31.6-35.5); Mean Corpuscular Hemoglobin 29.3 pg (28.0-33.3); Mean Corpuscular Volume 88.4 fL (83.0-100.0); Monocytes # 0.7 K/mcL (0.0-1.3); Monocytes % 9.4 %; Neutrophils # 4.5 K/mcL (1.6-8.9); Phosphorous 3.9 mg/dL (2.7-4.5); Platelet Count 162 K/mcL (140-400); Potassium 4.6 mEq/L (3.5-5.1); Red Blood Count 3.62 M/mcL (4.19-5.50); Red Cell Distribution Width 13.2 % (11.5-14.5); Segmented Neutrophils % 63.1 %; White Blood Count 7.2 K/mcL (4.3-11.1)
[2018-10-10] MEDS ORDERED: Insulin LISPRO 300 UNITS/3 ML VIAL SQ SCH ×2 (08:17→21:00)
[2018-10-10] MEDS ORDERED: Metoprolol 100 MG TABLET PO SCH (09:00)
[2018-10-10] MEDS ORDERED: Aspirin Enteric Coated 81 MG Tablet PO SCH (09:00)
[2018-10-10] MEDS ORDERED: Insulin DETEMIR 100 UNIT/ML X5UNITS SQ SCH (09:00)
[2018-10-10] MEDS ORDERED: amLODIPine 5 MG TABLET PO SCH (09:00)
[2018-10-10 10:27] VITALS: BP 180/95
[2018-10-10] MEDS ORDERED: 0.9 % Sodium Chloride 1,000 ML IVC SCH (10:34)
[2018-10-10] MEDS ORDERED: amLODIPine 5 MG TABLET PO ONE (11:25)
--- NOTE | 2018-10-10 14:43 | Vascular/Endovasc Consult Note ---
Date of Encounter: 10/10/18 Time of Encounter: 14:41 Assessment and Plan (1) Hypertension Current Visit: Yes Status: Chronic Patient has chronic hypertension and this is under direct medical management. Qualifiers: Hypertension type: unspecified Qualified Code(s): I10 - Essential (primary) hypertension (2) Syncope Current Visit: Yes Status: Acute Patient has an unexplained episode of syncope yesterday. The carotid artery findings do not suggest an etiology from a cerebrovascular standpoint. I do not recommend further testing with angiography. Because there is no significant plaque formation in the right carotid system I suspect the elevated velocities are due to tortuosity of the vessel rather than significant plaque restriction of blood flow. Recommend patient continue to follow up with his primary care provider. Her hypertensive control and for further issues related to the syncope. Patient does not need a follow-up visit in vascular surgery at this time. Qualifiers: Syncope type: unspecified Qualified Code(s): R55 - Syncope and collapse (3) History of CVA (cerebrovascular accident) Current Visit: Yes Status: Chronic Status post left hemispheric stroke in April 2018. Patient was evaluated at [facility] for this. - History of Present Illness Consult date: 10/10/18 Consult reason: Syncope Chief complaint: Syncope History of present illness: Mr. Menon is a 48 year old male Who was admitted via the emergency room yesterday. The patient was mowing his lawn and he came into the period his was with him. After beginning to eat he stood up and coughed and then had an episode of syncope which lasted proximally 30-60 seconds. After he regained consciousness he had vomiting in the then summoned the squad and the patient was seen in emergency room and subsequently admitted. The patient has had no previous similar symptoms. He denies feeling ill prior to the onset of the syncope. He had not performed any unusual activities prior to this time. Of note is the patient suffered a left hemispheric stroke on April 21. He did not seek medical attention until the following day. He was subsequently seen locally and then transferred to [facility] for 3-4 days. He was told there that he had suffered an ischemic stroke and it was carefully not a hemorrhagic stroke. He states that he had an echocardiogram and a carotid artery ultrasound as well as other scanning tests at that time. Surgery was not recommended for his carotid artery at that time. The patient had a carotid artery duplex scan performed yesterday. I have personally reviewed these images. These demonstrate no significant lesion in the left carotid system which is the side of his stroke in April. On the right side he has a tortuous distal internal carotid artery. The velocity is elevated which suggests a 60-79% stenosis but no significant plaque is identified. The patient may have velocity elevation due to tortuosity alone. Past Med Surg Social Fam HX - Past Medical History Medical history: CVA, diabetes, GERD, hyperlipidemia, hypertension, renal disease Additional medical history: CVA in April Psychiatric history: no psych history - Past Surgical History Surgical History: other (Toe amputations) Additional surgical history: left ankle, right great toe amputated - Social History Smoking Status: Former smoker Smokeless Tobacco Status: No Alcohol use: none Drug use: none - Family History Father Living Status: Still Living Hx Family Neuromuscular Disorders: Yes (cva) Mother Living Status: Still Living Hx Family Endocrine Disorder: Yes (DM) Medications and Allergies Omeprazole [PriLOSEC] 40 mg PO QAM 04/21/18 [History] Aspirin [Lo-Dose Aspirin EC] 81 mg PO QAM 10/09/18 [History] Atorvastatin Calcium [Lipitor] 80 mg PO QAM 10/09/18 [History] Dulaglutide [Trulicity] 1.5 mg SQ MO 10/09/18 [History] Furosemide [Lasix] 20 mg PO QAM 10/09/18 [History] Insulin ASPART [Novolog Flexpen] 6 units SQ TID 10/09/18 [History] Insulin DETEMIR [Levemir Flextouch] 30 units PO QAM 10/09/18 [History] Insulin DETEMIR [Levemir] 35 unit SQ HS 10/09/18 [History] Lisinopril [Zestril] 40 mg PO QAM 10/09/18 [History] Metoprolol [Lopressor] 100 mg PO BID 10/09/18 [History] amLODIPine [Norvasc] 5 mg PO QAM 10/09/18 [History] Allergy/AdvReac Type Severity Reaction Status Date / Time duloxetine [From Cymbalta] Allergy Blister Verified 01/21/15 22:58 gabapentin Allergy Blister Verified 02/20/17 15:05 sulfamethoxazole Allergy Blister Verified 02/20/17 15:05 [From Bactrim] trimethoprim [From Bactrim] Allergy Blister Verified 02/20/17 15:05 All Systems Review: The remainder of the systems were reviewed and are negative Exam General: Present: Conversant, No Apparent Distress, Well developed, Well nourished HEENT: Present: Atraumatic, Normocephaly, Trachea midline Neck: Absent: JVD, Left Carotid bruit, Right Carotid bruit, Midline deformity, Tracheal deviation Cardiac: Present: Reg Rate and Rhythm, Normal S1 and S2, No Murmur Lungs: Present: Normal Breath Sounds Neuro: Present: Alert and responsive, Cranial nerves grossly intact, Other (Patient has right upper extremity weakness and abnormal positioning and stren gth of right hand and wrist. The patient was formally right-handed but following his stroke he is now left-handed.). Absent: Motor nerves grossly intact Consult Discharge Plan - Plan Referrals: Omayra Lozada, KENNEL AIDE [Primary Care Provider] -
[2018-10-10 15:12] LABS: Calcium 8.6 mg/dL (8.6-10.3); Potassium 4.8 mEq/L (3.5-5.1)
--- NOTE | 2018-10-10 17:05 | Discharge Summary ---
- NOTES TO OUTPATIENT PROVIDER Notes to Outpatient Provider: Patient with a history of diabetes, prior CVA with right-sided residual deficits was hospitalized after a syncopal episode at home that lasted for about 30 seconds. Patient was worked up for syncope. Patient had carotid Dopplers done which showed a tortuous right ICA. Vascular surgery was consulted and they do not recommend any intervention at this time. Patient also underwent a 2-D echocardiogram which showed EF of 55-60%. Patient had presented with acute kidney injury with a creatinine of 2 which was above his normal baseline. He was hydrated but his renal function continued to worsen. As such we had recommended that he be evaluated by nephrology and will also obtain renal ultrasound and work this up further. However patient did not wish to stay in the hospital and left AGAINST MEDICAL ADVICE. Orders not resulted at time of discharge: Pending orders 10/10/18 15:26 Retroperitoneal Ultrasound - Complete [US retroperitoneal comp] [US] Routine Date of Encounter: 10/10/18 Time of Encounter: 16:55 - Discharge Diagnosis (1) Syncope Priority: Primary Status: Acute Qualifiers: Syncope type: unspecified Qualified Code(s): R55 - Syncope and collapse (2) Acute kidney injury Priority: Secondary Status: Acute (3) Diabetes mellitus Priority: Secondary Status: Acute Qualifiers: Diabetes mellitus type: type 2 Diabetes mellitus retirement insulin use: with retirement use Diabetes mellitus complication status: with skin complications Diabetes mellitus complication detail: with foot ulcer Qualified Code(s): E11.621 - Type 2 diabetes mellitus with foot ulcer; L97.509 - Non-pressure chronic ulcer of other part of unspecified foot with unspecified severity; L97.509 - Non-pressure chronic ulcer of other part of unspecified foot with unspecified severity; L97.509 - Non-pressure chronic ulcer of other part of unspecified foot with unspecified severity; L97.509 - Non-pressure chronic ulcer of other part of unspecified foot with unspecified severity; 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 Menon is a 48 year old male Patient with a history of diabetes, prior CVA with right-sided residual deficits was hospitalized after a syncopal episode at home that lasted for about 30 seconds. Patient was worked up for syncope. Patient had carotid Dopplers done which showed a tortuous right ICA. Vascular surgery was consulted and they do not recommend any intervention at this time. Patient also underwent a 2-D echocardiogram which showed EF of 55-60%. Patient had presented with acute kidney injury with a creatinine of 2 which was above his normal baseline. He was hydrated but his renal function continued to worsen. As such we had recommended that he be evaluated by nephrology and will also obtain renal ultrasound and work this up further. However patient did not wish to stay in the hospital and left AGAINST MEDICAL ADVICE. - Time Spent with Patient Total time spent providing and/or coordinating discharge services: - Discharge Medications Prescriptions: No Action Furosemide [Lasix] 20 mg PO QAM Insulin DETEMIR [Levemir] 35 unit SQ HS Aspirin [Lo-Dose Aspirin EC] 81 mg PO QAM amLODIPine [Norvasc] 5 mg PO QAM Atorvastatin Calcium [Lipitor] 80 mg PO QAM Dulaglutide [Trulicity] 1.5 mg SQ MO Insulin ASPART [Novolog Flexpen] 6 units SQ TID Insulin DETEMIR [Levemir Flextouch] 30 units PO QAM Lisinopril [Zestril] 40 mg PO QAM Metoprolol [Lopressor] 100 mg PO BID Omeprazole [PriLOSEC] 40 mg PO QAM Home Medications: Omeprazole [PriLOSEC] 40 mg PO QAM 04/21/18 [History] Aspirin [Lo-Dose Aspirin EC] 81 mg PO QAM 10/09/18 [History] Atorvastatin Calcium [Lipitor] 80 mg PO QAM 10/09/18 [History] Dulaglutide [Trulicity] 1.5 mg SQ MO 10/09/18 [History] Furosemide [Lasix] 20 mg PO QAM 10/09/18 [History] Insulin ASPART [Novolog Flexpen] 6 units SQ TID 10/09/18 [History] Insulin DETEMIR [Levemir Flextouch] 30 units PO QAM 10/09/18 [History] Insulin DETEMIR [Levemir] 35 unit SQ HS 10/09/18 [History] Lisinopril [Zestril] 40 mg PO QAM 10/09/18 [History] Metoprolol [Lopressor] 100 mg PO BID 10/09/18 [History] amLODIPine [Norvasc] 5 mg PO QAM 10/09/18 [History] Allergies/Adverse Reactions: Allergy/AdvReac Type Severity Reaction Status Date / Time duloxetine [From Cymbalta] Allergy Blister Verified 01/21/15 22:58 gabapentin Allergy Blister Verified 02/20/17 15:05 sulfamethoxazole Allergy Blister Verified 02/20/17 15:05 [From Bactrim] trimethoprim [From Bactrim] Allergy Blister Verified 02/20/17 15:05 Date of admission: 10/09/18 19:48 Primary care physician: Omayra Lozada CNP Consults: 10/10/18 10:25 Consult to Vascular Surgery [CONS] Routine Consulting Provider: [facility] [place] Reason for Consult: Right ICA stenosis/ syncope episode. also had CVA in Apr Time Notified: 10:25 Call Completed: Yes Discharging clinician: Grace Tse Anticipated date of discharge: 10/10/18 - Constitutional Vitals: Temp Pulse Resp BP Pulse Ox 98.7 F 98 16 177/90 96 10/10/18 10:25 10/10/18 10:25 10/10/18 10:25 10/10/18 10:25 10/10/18 10:25 General appearance: Present: cooperative, A&O X 3, pleasant, no acute distress, answers questions appropriately Exam: . - Respiratory Respiratory exam: Present: CTAB. Absent: accessory muscle use, rales, rhonchi, wheezes - Cardiovascular Cardiovascular exam: Present: RRR, +S1, +S2. Absent: diastolic murmur, gallop, rubs, systolic murmur - Patient Status Disposition: Left Against Medical Advice Condition: Good - Discharge Instructions Instructions: Acute Kidney Injury (GEN), Chronic Hypertension (DC) Follow Up With: Omayra Lozada CNP [Primary Care Provider] -
--- NOTE | 2018-10-11 05:29 | Electrocardiograph Report ---
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
[2018-10-11] MEDS ORDERED: amLODIPine 5 MG TABLET PO SCH (09:00)
== END 2018-10-10 16:20 | disposition left against medical advice (07) ==
LOC: 2ANU 15:03 → EMEROOARM 15:03 → SUATTDRO 19:48 → 2ANU 20:27
PROVIDERS: ADMIT Internal Medicine Nephrology; ATTEND Internal Medicine

== ENCOUNTER 2020-05-29 21:10 | Inpatient (IN) ==
[2020-05-29] MEDS ORDERED: Isovue-370 500 ML BOTTLE IVP ONE ×2 (21:36→23:43)
[2020-05-29 22:23] LABS: Prothrombin Time 12.1 Seconds (9.4-12.1)
[2020-05-29 22:33] LABS: BUN/Creatinine Ratio 14 (6-26); Blood Urea Nitrogen 86 mg/dL (6-20); Calcium 7.9 mg/dL (8.6-10.3); Carbon Dioxide 15 mEq/L (23-29); Chloride 110 mEq/L (98-107); Glucose 170 mg/dL (70-105); Osmolality,Calculated 314 (280-300); Potassium 5.2 mEq/L (3.5-5.1); Sodium 137 mEq/L (136-145); eGFR For African Americans 12 (> 60); eGFR For Non-African Americans 10 (> 60)
[2020-05-29 22:34] LABS: Troponin I < 0.03 ng/mL (< 0.04)
[2020-05-29 22:46] LABS: Basophils % 0.6 %; Eosinophils # 0.2 K/mcL (0.0-0.6); Eosinophils % 5.3 %; Hematocrit 18.3 % (37.5-50.1); Immature Granulocytes % 0.3 % (0-4); Lymphocytes # 0.5 K/mcL (0.6-4.6); Mean Corpuscular HGB Conc 31.7 g/dL (31.6-35.5); Mean Corpuscular Hemoglobin 29.4 pg (28.0-33.3); Mean Corpuscular Volume 92.9 fL (83.0-100.0); Mean Platelet Volume 10.9 fL (9.4-12.4); Monocytes # 0.4 K/mcL (0.0-1.3); Monocytes % 10.1 %; Neutrophils # 2.5 K/mcL (1.6-8.9); Platelet Count 114 K/mcL (140-400); Red Blood Count 1.97 M/mcL (4.19-5.50); Red Cell Distribution Width 13.3 % (11.5-14.5); Segmented Neutrophils % 69.7 %; White Blood Count 3.6 K/mcL (4.3-11.1)
[2020-05-29 22:50] LABS: Hemoglobin 5.8 g/dL (12.9-16.9)
[2020-05-30 00:01] LABS: Immature Reticulocyte % 6.8 % (11.0-38.0); Retculocyte # 0.02 M/mcL (0.05-0.10); Reticulocyte % 1.2 % (1.6-2.8)
[2020-05-30 00:04] LABS: % Iron Saturation 10 % (20-55); Iron 24 mcg/dL (65-175); Lactate Dehydrogenase 210 Units/L (140-271); Transferrin 179 mg/dL (203-362)
[2020-05-30 00:23] LABS: Ferritin 162 ng/mL (20-250)
[2020-05-30 01:46] LABS: Bacteria,Urine Few per hpf (None-Few); Bilirubin,Urine Negative (Negative); Blood,Urine Small (Negative); Clarity,Urine Clear (Clear); Color,Urine Colorless (Yellow); Glucose,Urine (UA) 150 mg/dL (Normal); Hyaline Casts,Urine Few per lpf (None Seen); Ketones,Urine Negative (Negative); Leukocyte Esterase,Urine Negative (Negative); Mucus,Urine Few per lpf (None-Few); Nitrite,Urine Negative (Negative); PH,Urine 6.5 pH Units (5.0-8.0); Protein,Urine >=300 mg/dL (Neg-Trace); RBC,Urine 15-30 per hpf (0-3); Specific Gravity,Urine 1.012 (1.010-1.025); Urobilinogen,Urine Normal (Normal); WBC,Urine 0-3 per hpf (0-3)
[2020-05-30] MEDS ORDERED: 0.9 % Sodium Chloride 250 ML ONE ×2 (01:58→05:34)
[2020-05-30] MEDS ORDERED: Furosemide 20 MG/2 ML VIAL IVP ONE (07:41)
[2020-05-30] MEDS ORDERED: Ondansetron 4 MG/2 ML VIAL IVP ONE (07:41)
[2020-05-30] MEDS ORDERED: Pantoprazole 80 MG in 0.9 % Sodium Chloride 50 ML IVPB ONE (07:41)
[2020-05-30] MEDS ORDERED: *HR* Dextrose 50 % in Water (Vial) 50 ML VIAL IVP ONE (07:42)
[2020-05-30] MEDS ORDERED: Insulin Human Regular 10 UNIT in 0.9 % Sodium Chloride 10 ML IV ONE (07:42)
[2020-05-30] MEDS ORDERED: Naloxone 0.4 MG/ML INJ IVP PRN (08:28)
[2020-05-30 14:28] LABS: Hematocrit 23.4 % (37.5-50.1)
[2020-05-30 14:29] LABS: Hemoglobin 7.5 g/dL (12.9-16.9)
[2020-05-30 14:40] LABS: Uric Acid 7.9 mg/dL (2.3-7.6)
[2020-05-30 16:43] LABS: Creatinine,Urine 43 mg/dL; Microalbumin,Urine > 1350 mg/L; Protein/Creatinine Ratio,Urine 10.05 mg/mg (0.00-0.20); Sodium, Urine 86.3 mEq/L
[2020-05-30 18:08] LABS: Calcium 7.9 mg/dL (8.6-10.3); Potassium 5.3 mEq/L (3.5-5.1)
[2020-05-30] MEDS: Insulin DETEMIR 100 UNIT/ML X5UNITS SUBQ SCH (22:44)
[2020-05-30] MEDS: Metoprolol 100 MG TABLET PO SCH (22:45)
[2020-05-30] MEDS: hydrALAZINE 25 MG TABLET PO SCH (22:46)
[2020-05-30] MEDS: cloNIDine HCL 0.1 MG TABLET PO SCH (22:47)
[2020-05-30] MEDS: Furosemide 20 MG TABLET PO SCH (22:47)
[2020-05-31 01:11] LABS: Basophils % 0.7 %; Eosinophils # 0.2 K/mcL (0.0-0.6); Eosinophils % 4.3 %; Hematocrit 21.1 % (37.5-50.1); Hemoglobin 6.7 g/dL (12.9-16.9); Immature Granulocytes % 0.5 % (0-4); Lymphocytes # 0.6 K/mcL (0.6-4.6); Lymphocytes % 13.4 %; Mean Corpuscular HGB Conc 31.8 g/dL (31.6-35.5); Mean Corpuscular Hemoglobin 28.9 pg (28.0-33.3); Mean Corpuscular Volume 90.9 fL (83.0-100.0); Mean Platelet Volume 11.4 fL (9.4-12.4); Monocytes # 0.5 K/mcL (0.0-1.3); Monocytes % 12.2 %; Neutrophils # 2.9 K/mcL (1.6-8.9); Platelet Count 127 K/mcL (140-400); Red Blood Count 2.32 M/mcL (4.19-5.50); Red Cell Distribution Width 13.2 % (11.5-14.5); Segmented Neutrophils % 68.9 %; White Blood Count 4.2 K/mcL (4.3-11.1)
[2020-05-31 02:04] LABS: Calcium 7.6 mg/dL (8.6-10.3)
[2020-05-31] MEDS: hydrALAZINE 25 MG TABLET PO SCH ×3 (08:00→21:03)
[2020-05-31] MEDS ORDERED: 0.9 % Sodium Chloride 1,000 ML IVC SCH (08:15)
[2020-05-31] MEDS ORDERED: D5% in Water 1,000 ML IVC PRN (11:04)
[2020-05-31] MEDS ORDERED: *HR* Dextrose 50 % in Water (Vial) 50 ML VIAL IVP PRN (11:04)
[2020-05-31] MEDS ORDERED: Dextrose Gel 15 GM/37.5 ML TUBE PO PRN ×2 (11:04)
[2020-05-31] MEDS ORDERED: Perflutren Lipid Microsphere 1.3 ML in 0.9 % Sodium Chloride 8.7 ML IVP PRN (13:38)
[2020-05-31] MEDS ORDERED: 0.9 % Sodium Chloride 250 ML ONE (15:47)
[2020-05-31] MEDS: Metoprolol 100 MG TABLET PO SCH ×2 (15:55→21:02)
[2020-05-31] MEDS: Isosorbide MONOnitrate (24 HR) 60 MG TAB.ER.24H PO SCH (15:55)
[2020-05-31] MEDS: amLODIPine 5 MG TABLET PO SCH (15:56)
[2020-05-31] MEDS: cloNIDine HCL 0.1 MG TABLET PO SCH ×2 (15:56→21:02)
[2020-05-31] MEDS: Insulin DETEMIR 100 UNIT/ML X5UNITS SUBQ SCH ×2 (15:57→21:00)
[2020-05-31 17:21] LABS: Hematocrit 24.5 % (37.5-50.1); Hemoglobin 7.8 g/dL (12.9-16.9)
[2020-05-31] MEDS: Insulin LISPRO 300 UNITS/3 ML VIAL SUBQ SCH (21:01)
[2020-06-01 04:46] LABS: Basophils % 0.7 %; Eosinophils # 0.3 K/mcL (0.0-0.6); Eosinophils % 7.2 %; Hematocrit 22.8 % (37.5-50.1); Hemoglobin 7.3 g/dL (12.9-16.9); Immature Granulocytes % 0.2 % (0-4); Lymphocytes # 0.6 K/mcL (0.6-4.6); Lymphocytes % 13.2 %; Mean Corpuscular Hemoglobin 29.1 pg (28.0-33.3); Mean Corpuscular Volume 90.8 fL (83.0-100.0); Mean Platelet Volume 11.4 fL (9.4-12.4); Monocytes # 0.4 K/mcL (0.0-1.3); Monocytes % 10.6 %; Neutrophils # 2.8 K/mcL (1.6-8.9); Platelet Count 113 K/mcL (140-400); Red Blood Count 2.51 M/mcL (4.19-5.50); Red Cell Distribution Width 13.2 % (11.5-14.5); Segmented Neutrophils % 68.1 %; White Blood Count 4.2 K/mcL (4.3-11.1)
[2020-06-01 04:51] LABS: Calcium 7.5 mg/dL (8.6-10.3); Magnesium 2.2 mg/dL (1.6-2.6); Phosphorous 6.7 mg/dL (2.7-4.5); Potassium 5.5 mEq/L (3.5-5.1)
[2020-06-01] MEDS: Insulin LISPRO 300 UNITS/3 ML VIAL SUBQ SCH ×6 (05:04→17:28)
[2020-06-01] MEDS: Furosemide 20 MG TABLET PO SCH (05:18)
[2020-06-01] MEDS ORDERED: 0.9 % Sodium Chloride 250 ML ONE (09:19)
[2020-06-01] MEDS: hydrALAZINE 25 MG TABLET PO SCH ×3 (09:23→20:55)
[2020-06-01] MEDS: cloNIDine HCL 0.1 MG TABLET PO SCH ×2 (09:23→20:55)
[2020-06-01] MEDS: Metoprolol 100 MG TABLET PO SCH ×2 (09:24→20:56)
[2020-06-01] MEDS: amLODIPine 5 MG TABLET PO SCH (09:24)
[2020-06-01] MEDS: Isosorbide MONOnitrate (24 HR) 60 MG TAB.ER.24H PO SCH (09:25)
[2020-06-01] MEDS: Insulin DETEMIR 100 UNIT/ML X5UNITS SUBQ SCH ×3 (09:31→20:56)
[2020-06-01] MEDS ORDERED: Ferumoxytol 510 MG in 0.9 % Sodium Chloride 100 ML IVPB ONE (11:12)
[2020-06-01 14:26] LABS: Hematocrit 26.8 % (37.5-50.1)
[2020-06-01 14:30] LABS: Hemoglobin 8.9 g/dL (12.9-16.9)
[2020-06-01 14:45] LABS: Calcium 7.7 mg/dL (8.6-10.3); Potassium 5.4 mEq/L (3.5-5.1)
[2020-06-01] MEDS ORDERED: Insulin LISPRO 300 UNITS/3 ML VIAL SUBQ SCH (21:00)
[2020-06-02 06:21] LABS: Hematocrit 27.1 % (37.5-50.1); Hemoglobin 8.9 g/dL (12.9-16.9); Mean Corpuscular HGB Conc 32.8 g/dL (31.6-35.5); Mean Corpuscular Volume 91.2 fL (83.0-100.0); Mean Platelet Volume 11.5 fL (9.4-12.4); Platelet Count 126 K/mcL (140-400); Red Blood Count 2.97 M/mcL (4.19-5.50); Red Cell Distribution Width 13.5 % (11.5-14.5); White Blood Count 5.3 K/mcL (4.3-11.1)
[2020-06-02 07:05] LABS: Calcium 7.8 mg/dL (8.6-10.3); Potassium 4.9 mEq/L (3.5-5.1)
[2020-06-02] MEDS: Insulin LISPRO 300 UNITS/3 ML VIAL SUBQ SCH ×2 (08:42→12:21)
[2020-06-02] MEDS: Insulin DETEMIR 100 UNIT/ML X5UNITS SUBQ SCH ×2 (08:42→12:20)
[2020-06-02] MEDS: Isosorbide MONOnitrate (24 HR) 60 MG TAB.ER.24H PO SCH (09:21)
[2020-06-02] MEDS: Metoprolol 100 MG TABLET PO SCH (09:21)
[2020-06-02] MEDS: amLODIPine 5 MG TABLET PO SCH (09:21)
[2020-06-02] MEDS: cloNIDine HCL 0.1 MG TABLET PO SCH (09:21)
[2020-06-02] MEDS: hydrALAZINE 25 MG TABLET PO SCH (09:28)
[2020-06-02 11:55] VITALS: BP 143/64
[2020-06-04 06:22] LABS: Immunoglobulin A (CELIAC) 413 mg/dL (68-408)
[2020-06-05 08:55] LABS: Tissue Transglutaminase IgA <2 U/mL (0-3)
== END 2020-06-02 12:36 | disposition home or self-care (01) | DRG 683 ==
LOC: 2ANU 21:10 → EMEROOARM 21:10 → 2ANU 05-30 12:01 → SUATTDRO 05-30 16:39
PROVIDERS: ADMIT Student in an Organized Health Care Education/Training Program; ATTEND Internal Medicine
PROC: ENDOEBX (2020-05-31 12:55)